=== PATIENT | male | born 1965 | race Hispanic/Latino ===

== ENCOUNTER 2018-05-20 10:15 | Emergency (ER) | payer BC ==
--- NOTE | 2018-05-20 10:46 | C.PDOC ---
History Of Present Illness 53 y/o male presents to the ED with 3 day history of back pain. Patient denies any recent trauma or heavy lifting. Pain is described as constant, with no change with movement. Otherwise patient denies any weakness, numbness, tingling , dysuria, or hematuria. Patient states he did fall 6 weeks ago and was evaluated with negative x-rays of his chest at that time. Time Seen by Provider: 05/20/18 10:21 Chief Complaint (Nursing): Back Pain History Per: Patient History/Exam Limitations: no limitations Onset/Duration Of Symptoms: Days (x3) Current Symptoms Are (Timing): Still Present Past Medical History Reviewed: Historical Data, Nursing Documentation, Vital Signs Vital Signs: Last Vital Signs Temp 99.0 F 05/20/18 11:43 Pulse 79 05/20/18 11:43 Resp 16 05/20/18 11:43 BP 113/66 05/20/18 11:43 Pulse Ox 95 05/20/18 11:43 - Medical History PMH: No Chronic Diseases Surgical History: No Surg Hx Family History: States: No Known Family Hx - Social History Hx Tobacco Use: Yes Hx Alcohol Use: No Hx Substance Use: No - Immunization History Hx Tetanus Toxoid Vaccination: No Hx Influenza Vaccination: No Hx Pneumococcal Vaccination: No Review Of Systems Except As Marked, All Systems Reviewed And Found Negative. Constitutional: Negative for: Fever, Chills Gastrointestinal: Negative for: Abdominal Pain Genitourinary: Negative for: Dysuria, Frequency, Hematuria Musculoskeletal: Positive for: Back Pain Neurological: Negative for: Weakness, Numbness, Other (tingling) Physical Exam - Physical Exam Appears: Well, Non-toxic, No Acute Distress Skin: Warm, Dry, Rash (Rash over the lumbar area, consistent with application of hot packs) Head: Atraumatic, Normacephalic Eye(s): bilateral: Normal Inspection, PERRL, EOMI Neck: Normal ROM Cardiovascular: Rhythm Regular Respiratory: Normal Breath Sounds Gastrointestinal/Abdominal: Soft, No Tenderness, No Distention Back: Vertebral Tenderness (lumbar), Paraspinal Tenderness (lumbar) Extremity: Normal ROM Neurological/Psych: Oriented x3, Normal Speech, Normal Cranial Nerves, Normal Motor, Normal Sensation Gait: Steady (ambulating in fast track with steady gait) ED Course And Treatment O2 Sat by Pulse Oximetry: 97 (RA) Pulse Ox Interpretation: Normal - Other Rad x-ray lumbar spine X-Ray: Viewed By Me, Read By Radiologist Interpretation: Accession No. : [id number]. Patient Name / ID : BOB TANNER / [id number]. Exam Date : 05/20/2018 10:39:16 ( Approved ). Study Comment : Sex / Age : M / 53Y. Creator : Julien Cross MD. Dictator : Julien Cross MD. Phonograph Needle Tip Maker : Conventions Assistant : Julien Cross MD. Approver2 : Report Date : 05/20/2018 11:27:17. My Comment : . Date of service: 05/20/2018. PROCEDURE: Radiographs of the Lumbar Spine. HISTORY: midline back pain. COMPARISON: No prior. FINDINGS: BONES: Vertebral body heights are maintained. Grade 1 anterolisthesis of L5 on S1. Normal lumbar lordosis maintained. Chronic bilateral pars defects of L5. DISC SPACES: Severe disc space narrowing at L5-S1. OTHER FINDINGS: None. IMPRESSION: Chronic pars defects of L5. Grade 1 anterolisthesis of L5 on S1 with severe disc space narrowing at this level. Progress Note: X-ray of the lumbar spine ordered and reviewed. Patient treated with 30 mg IM Toradol and 5 mg PO Valium in the ED. Counseled patient regarding x-ray results, copy of report provided. On reevaluation patient is resting comfortably and reports complete relief of pain. Patient remains AAOx3, afebrile , with steady gait, and is stable for d/c home. Reevaluation Time: 11:38 Reassessment Condition: Improved Disposition - Disposition Disposition: HOME/ ROUTINE Disposition Time: 11:49 Condition: GOOD Additional Instructions: Follow-up with PMD within 2 days. Return to ED if condition worsens. Flexeril for pain. Prescriptions: Cyclobenzaprine [Cyclobenzaprine HCl] 10 mg PO TID PRN #20 tab PRN Reason: Pain, Moderate (4-7) Instructions: Spondylolisthesis, Low Back Pain (DC) Forms: [employer] (Omani) - Clinical Impression Clinical Impression: Low back pain, Anterolisthesis, Disc narrowing - Scribe Statement The provider has reviewed the documentation as recorded by the Scribe (Tricia Gandara) Provider Attestation: All medical record entries made by the Scribe were at my direction and personally dictated by me. I have reviewed the chart and agree that the record accurately reflects my personal performance of the history, physical exam, medical decision making, and the department course for this patient. I have also personally directed, reviewed, and agree with the discharge instructions and disposition.
--- NOTE | 2018-05-20 11:28 | RAD ---
Date of service: 05/20/2018 PROCEDURE: Radiographs of the Lumbar Spine. HISTORY: midline back pain COMPARISON: No prior. FINDINGS: BONES: Vertebral body heights are maintained. Grade 1 anterolisthesis of L5 on S1. Normal lumbar lordosis maintained. Chronic bilateral pars defects of L5. DISC SPACES: Severe disc space narrowing at L5-S1. OTHER FINDINGS: None. IMPRESSION: Chronic pars defects of L5. Grade 1 anterolisthesis of L5 on S1 with severe disc space narrowing at this level.
[2018-05-20 11:45] VITALS: BP 113/66; PULSE 79; RESP 16; TEMP 99
[2018-05-20 11:51] VITALS: O2SAT 97
== END 2018-05-20 11:57 | disposition home or self-care (01) ==
LOC: C.ER 10:15
DX: M48.07 Spinal stenosis, lumbosacral region (principal); M54.5 Low back pain
CPT/HCPCS: 72100; 96372; 99284; J1885

== ENCOUNTER 2018-05-22 17:26 | Emergency (ER) | payer BC ==
[2018-05-22 17:40] VITALS: BMI 25.7
[2018-05-22 17:43] VITALS: BP 111/76; PULSE 96; RESP 18; TEMP 98.2; O2SAT 95
--- NOTE | 2018-05-22 18:03 | C.PDOC ---
History Of Present Illness 53 y/o male presents to the ER complaining of persistent lower back pain that has not improved since his prior ER visit on 05/20/18. The patient admits to experiencing a fall from a ladder 9 weeks ago that did not result in an acute injury. He denies any associated paresthesia , numbness, dysuria or incontinence. Time Seen by Provider: 05/22/18 17:47 Chief Complaint (Nursing): Back Pain History Per: Patient History/Exam Limitations: no limitations Onset/Duration Of Symptoms: Days Current Symptoms Are (Timing): Still Present Quality Of Discomfort: "Pain" Associated Symptoms: denies: Incontinence, New Weakness, New Numbness Past Medical History Reviewed: Historical Data, Nursing Documentation, Vital Signs Vital Signs: Last Vital Signs Temp 98.2 F 05/22/18 17:40 Pulse 96 H 05/22/18 17:40 Resp 18 05/22/18 18:19 BP 111/76 05/22/18 17:40 Pulse Ox 95 05/22/18 18:41 - Medical History PMH: No Chronic Diseases Other Surgeries: Left arm surgery Family History: States: Unknown Family Hx - Social History Hx Tobacco Use: Yes Hx Alcohol Use: No Hx Substance Use: No - Immunization History Hx Tetanus Toxoid Vaccination: No Hx Influenza Vaccination: No Hx Pneumococcal Vaccination: No Review Of Systems Except As Marked, All Systems Reviewed And Found Negative. Constitutional: Negative for: Fever Genitourinary: Negative for: Dysuria, Incontinence Musculoskeletal: Positive for: Back Pain Skin: Negative for: Bruising Neurological: Negative for: Weakness, Numbness, Other (paresthesia) Physical Exam - Physical Exam Appears: Well, Non-toxic, No Acute Distress Skin: Warm, Dry Head: Atraumatic, Normacephalic Eye(s): bilateral: PERRL, EOMI Ear(s): Bilateral: Normal Oral Mucosa: Moist Neck: Normal ROM Chest: Symmetrical Cardiovascular: Rhythm Regular, No Murmur Respiratory: Normal Breath Sounds, No Rales, No Rhonchi, No Wheezing Gastrointestinal/Abdominal: Bowel Sounds, Soft, No Tenderness Back: Other (Point tenderness at L5 with digital pressure) Extremity: Bilateral: Atraumatic, Normal Color And Temperature, Normal ROM Pulses: Left Radial: Normal, Right Radial: Normal Neurological/Psych: Oriented x3, Normal Speech Gait: Steady ED Course And Treatment O2 Sat by Pulse Oximetry: 95 (RA) Pulse Ox Interpretation: Normal Medical Decision Making Medical Decision Making: Impression: 53y/o male with persistent lower back pain Plan: --Motrin 600mg PO --Ultram 50 mg PO ? related to fall from ladder 9 wks ago L5/S1 anterior spondylolysthesis noted from 2 days ago on LS spine films no neuropathy probably worse with heating pads ice/NSAIDS/Tramadol outpatient f/u for CT/MRI w PMD/ Medicine [facility] Administrator today is Dr. Yousif Cross Disposition Doctor Will See Patient In The: Office Counseled Patient/Family Regarding: Studies Performed, Diagnosis - Disposition Referrals: [facility] [Outside] [employer] [facility] [Outside] [facility] [Outside] Mike Cross MD [Staff Provider] - Disposition: HOME/ ROUTINE Disposition Time: 18:03 Condition: GOOD Additional Instructions: ice packs to affected area 1/2 hour per hour NOTHING HOT Motrin 400-600 mg every 6 hours as needed for pain Tramadol 50 mg (narcotic) 1 tab every 4-6 hours as needed for more severe pain Follow-up with Dr. Yousif Cross- Medicine [facility] Administrator- to consider outpatient CT or MRI of LS spine if symptoms not improving with above treatment in 1-2 weeks Prescriptions: traMADol [Ultram] 50 mg PO Q6H PRN #20 tab PRN Reason: pain Instructions: Low Back Pain in Adults, Herniated Disc Forms: [employer] (Czech) - Clinical Impression Clinical Impression: Low back pain - Scribe Statement The provider has reviewed the documentation as recorded by the Scribe (Beatriz Mccoy) Provider Attestation: All medical record entries made by the Scribe were at my direction and personally dictated by me. I have reviewed the chart and agree that the record accurately reflects my personal performance of the history, physical exam, medical decision making, and the department course for this patient. I have also personally directed, reviewed, and agree with the discharge instructions and disposition.
== END 2018-05-22 18:20 | disposition home or self-care (01) ==
LOC: C.ER 17:26
DX: M54.5 Low back pain (principal)

== ENCOUNTER 2018-05-25 07:43 | Inpatient (IN) | payer BC ==
[2018-05-25 07:43] VITALS: BMI 25.7
--- NOTE | 2018-05-25 08:10 | C.PDOC ---
History Of Present Illness 53 y/o male present to ED for evaluation of left sided weakness and numbness upon waking up this morning. He states he was unable to move his left side which has improved since onset at 630 am upon awakening. Also reports left side of lip drooping. He also notes he fell off a ladder approximately 6 weeks ago and was evaluated with negative x-rays. Denies headache, dizziness, visual changes, chest pain, shortness of breath, or fever. Denies history of HTN. Time Seen by Provider: 05/25/18 07:47 Chief Complaint (Nursing): Weakness/Neurological Deficit History Per: Patient History/Exam Limitations: no limitations Past Medical History Reviewed: Historical Data, Nursing Documentation, Vital Signs Vital Signs: Last Vital Signs Temp 98.1 F 05/26/18 04:35 Pulse 81 05/26/18 04:35 Resp 20 05/26/18 04:35 BP 120/76 05/26/18 04:35 Pulse Ox 99 05/26/18 04:35 Family History: States: Unknown Family Hx - Social History Hx Tobacco Use: Yes Hx Alcohol Use: No Hx Substance Use: No - Immunization History Hx Tetanus Toxoid Vaccination: No Hx Influenza Vaccination: No Hx Pneumococcal Vaccination: No Review Of Systems Except As Marked, All Systems Reviewed And Found Negative. Constitutional: Negative for: Fever, Chills Cardiovascular: Negative for: Chest Pain Respiratory: Negative for: Shortness of Breath Neurological: Positive for: Weakness, Numbness. Negative for: Headache, Dizziness Physical Exam - Physical Exam Appears: Non-toxic, No Acute Distress Skin: Normal Color, Warm, Dry Head: Normacephalic, Other (mild left facial droop) Eye(s): bilateral: Normal Inspection Oral Mucosa: Moist Neck: Normal ROM, Supple Chest: Symmetrical Cardiovascular: Rhythm Regular Respiratory: Normal Breath Sounds, No Rales, No Rhonchi, No Wheezing Gastrointestinal/Abdominal: Soft, No Tenderness Extremity: No Pedal Edema, No Deformity Extremity: Bilateral: Atraumatic Neurological/Psych: Oriented x3, Normal Speech, Normal Motor, No Normal Sensation (diminished sensation to left extremities) ED Course And Treatment - Laboratory Results Result Diagrams: 05/25/18 08:16 05/25/18 08:16 ECG: Interpreted By Me, Viewed By Me ECG Rhythm: Sinus Rhythm ECG Interpretation: No Acute Changes Interpretation Of ECG: Normal intervals, normal axis. No acute ST/T wave changes. Rate From EC O2 Sat by Pulse Oximetry: 95 (RA) Pulse Ox Interpretation: Normal - CT Scan/US Head CT Other Rad Studies (CT/US): Read By Radiologist, Radiology Report Reviewed CT/US Interpretation: IMPRESSION: No definite acute intracranial findings though mild atrophy is somewhat greater than expected for patient of 53 years age as reported. This is a nonspecific pattern. A small chronic lacune is seen at the left basal ganglia inferiorly. Findings discussed with ER Nurse Estela with written down and read back verification 05/25/2018 8:40 a.m.. NIHSS Stroke Scale 2 - Date/Time Evaluation Performed Date Performed: 05/25/18 Time Performed: 08:09 When Was NIHSS Performed: Baseline - How Severe is the Stroke Level of Consciousness: 0=Alert LOC to Questions: 0=Both comments correct LOC to commands: 0=Obeys both correctly Best Gaze: 0=Normal Visual: 0=No visual loss Facial: 1=Minor asymmetry Motor Arm - Left: 1=Drift noted before 10 sec Motor Arm - Right: 0=No drift Motor Leg - Left: 1=Drift before 5 sec Motor Leg - Right: 0=No drift Limb Ataxia: 0=Absent Sensory: 1=Mild to moderate loss Best Language: 0=No aphasia Dysarthia: 0=Normal articulation Extinction & Inattention (Neglect): 0=Normal, no object Score: 4 Medical Decision Making Medical Decision Making: Plan: CTA head/neck EKG CXR Blood work IV fuids Spoke with Dr. Thornton, who states patient is not candidate for tPA since he woke up with symptoms and was instructed to start patient on Plavix and Aspirin. Disposition Discussed With : Paramjit Pride Doctor Will See Patient In The: Hospital Counseled Patient/Family Regarding: Studies Performed, Diagnosis - Disposition Disposition: HOSPITALIZED Disposition Time: 09:14 Condition: FAIR - Clinical Impression Clinical Impression: CVA (cerebral vascular accident), Pneumonia - Scribe Statement The provider has reviewed the documentation as recorded by the Scribe KP All medical record entries made by the Scribe were at my direction and personally dictated by me. I have reviewed the chart and agree that the record accurately reflects my personal performance of the history, physical exam, medical decision making, and the department course for this patient. I have also personally directed, reviewed, and agree with the discharge instructions and disposition.
[2018-05-25] MEDS ORDERED: Iodixanol 320 MG/ML 200 ML BOTTLE IV ONE (08:14)
[2018-05-25 08:23] LABS: BASO # 0.1 K/uL (0.0-0.2); BASO % 0.6 % (0.0-2.0); EOS # 0.3 K/uL (0.0-0.7); EOS % 3.2 % (0.0-4.0); HEMOGLOBIN 15.5 g/dL (12.0-18.0); LYMPH # 2.4 K/uL (1.0-4.3); LYMPH % 28.8 % (20.0-40.0); MEAN CELL VOLUME 88.2 fL (80.0-94.0); MEAN CORPUSCULAR HEMOGLOBIN 30.9 pg (27.0-31.0); MEAN PLATELET VOLUME 6.4 fL (7.2-11.7); MONO # 0.8 K/uL (0.0-0.8); MONO % 9.7 % (0.0-10.0); NEUT # 4.8 K/uL (1.8-7.0); NEUT % 57.7 % (50.0-75.0); NRBC % 0.2 % (0.0-2.0); RBC 5.01 Mil/uL (4.40-5.90); RED CELL DISTRIBUTION WIDTH 13.7 % (11.5-14.5); WHITE BLOOD COUNT 8.4 K/uL (4.8-10.8)
[2018-05-25 08:30] LABS: INR 1.2; PROTHROMBIN TIME 13.1 SECONDS (9.7-12.2)
--- NOTE | 2018-05-25 08:45 | CT ---
Date of service: 05/25/2018 PROCEDURE: CT HEAD WITHOUT CONTRAST. HISTORY: Code Stroke COMPARISON: None available. TECHNIQUE: Axial computed tomography images were obtained through the head/brain without intravenous contrast. Radiation dose: Total exam DLP = 972.04 mGy-cm. This CT exam was performed using one or more of the following dose reduction techniques: Automated exposure control, adjustment of the mA and/or kV according to patient size, and/or use of iterative reconstruction technique. FINDINGS: HEMORRHAGE: No intracranial hemorrhage. BRAIN: Mild expansion of the ventricular sulcal sternal spaces is appreciated slightly greater than expected for the patient's age of 53 years. A small chronic lacune is seen the left basal ganglia inferiorly. Corticomedullary differentiation is normal throughout. A small arachnoid cyst or epidermoid is seen at the left middle cranial fossa anteriorly measuring 3.0 x 1.8 cm. Posterior fossa contents appear unremarkable including the brainstem. VENTRICLES: As above. No hydrocephalus. CALVARIUM: Unremarkable. PARANASAL SINUSES: Unremarkable as visualized. No significant inflammatory changes. MASTOID AIR CELLS: Unremarkable as visualized. No inflammatory changes. OTHER FINDINGS: None. IMPRESSION: No definite acute intracranial findings though mild atrophy is somewhat greater than expected for patient of 53 years age as reported. This is a nonspecific pattern. A small chronic lacune is seen at the left basal ganglia inferiorly. Findings discussed with ER Nurse Palmer with written down and read back verification 05/25/2018 8:40 a.m..
[2018-05-25 08:46] LABS: ALB/GLOB RATIO 1.3 (1.0-2.1); ALT/SGPT 18 U/L (21-72); AST/SGOT 20 U/L (17-59); BLOOD UREA NITROGEN 11 mg/dL (9-20); CALCIUM 9.7 mg/dl (8.6-10.4); GFR AFRICAN-AMERICAN > 60; GFR NON-AFRICAN AMERICAN > 60; HDL CHOLESTEROL 36 mg/dL (30-70)
[2018-05-25] MEDS ORDERED: Aspirin 325 mg EC Tablets PO STA (08:50)
[2018-05-25 08:57] LABS: LDL CHOLESTEROL 105 mg/dL (0-129)
[2018-05-25] MEDS: Sodium Chloride 0.9% 1,000 ML IV SCH ×2 (09:04→20:31)
[2018-05-25] MEDS ORDERED: Azithromycin 500 MG in Sodium Chloride 0.9% 250 ML IVPB STA (09:13)
[2018-05-25] MEDS ORDERED: cefTRIAXone IV 1 gm in Dextros 50 ML IVPB ONE (09:20)
--- NOTE | 2018-05-25 09:56 | RAD ---
Date of service: 05/25/2018 HISTORY: Code Stroke COMPARISON: No prior. FINDINGS: LUNGS: Reticulonodular infiltrates are scattered bilaterally in the right greater than the left with the right apex somewhat spared. PLEURA: No significant pleural effusion identified, no pneumothorax apparent. CARDIOVASCULAR: Normal. OSSEOUS STRUCTURES: No significant abnormalities. VISUALIZED UPPER ABDOMEN: Normal. OTHER FINDINGS: None. IMPRESSION: Reticulonodular infiltrates are identified bilaterally in a pattern suspicious for infectious, inflammatory or neoplastic disease process. Further clinical correlation recommended.
--- NOTE | 2018-05-25 10:11 | CT ---
Date of service: 05/25/2018 PROCEDURE: CT Angiography of the Brain and Neck. HISTORY: stroke COMPARISON: None available. TECHNIQUE: CT angiography of the intracranial and neck arteries was performed. Coronal and sagittal maximum intensity projection reformatted images were generated. Contrast Dose: Visipaque 320, 100 cc Radiation dose:Total exam DLP = 60.03 mGy-cm. This CT exam was performed using one or more of the following dose reduction techniques: Automated exposure control, adjustment of the mA and/or kV according to patient size, and/or use of iterative reconstruction technique. FINDINGS: INTERNAL CEREBRAL ARTERIES: Unremarkable. The skull base, petrous, cavernous and supraclinoid segments are bilaterally widely patent. ANTERIOR CEREBRAL ARTERIES: Unremarkable. A1 and A2 segments are widely patent. Smaller distal branches unremarkable, as visualized. MIDDLE CEREBRAL ARTERIES: Unremarkable. M1 and M2 segments are widely patent. Perisylvian branches grossly symmetric. POSTERIOR CIRCULATION: Basilar Artery: Unremarkable. Distal Vertebral Arteries: Right dominant vertebrobasilar circulation. Posterior Cerebral Arteries: Unremarkable. Posterior Inferior Cerebellar Arteries: Unremarkable. NECK CTA: Common Carotid arteries: The bilateral common carotid appear widely patent from their origins to their bifurcations with no significant stenosis appreciated. No evidence to suggest common carotid artery dissection. Internal Carotid arteries: No significant stenosis is appreciated throughout the cervical internal carotid artery segments bilaterally and there is no evidence of dissection either. External Carotid arteries: Appear unremarkable bilaterally. Vertebral arteries: The bilateral vertebral arteries appear normal in caliber from their origins to their junction with the basilar artery. No significant stenosis or definite pattern of dissection. ANEURYSM/ VASCULAR MALFORMATIONS: None. OTHER FINDINGS: Instill note is made of mediastinal lymphadenopathy, moderately large left pleural effusion and bilateral reticulonodular infiltrates at the pulmonary apices as imaged. IMPRESSION: Unremarkable CT Angiography of the Brain and Neck. Incidental mediastinal lymphadenopathy, large left pleural effusion and bilateral apical reticulonodular infiltrates identified.
--- NOTE | 2018-05-25 12:22 | CP.PCM.HP ---
<Hanna MorenoRandee - Last Filed: 05/25/18 16:56> History of Present Illness - History of Present Illness History of Present Illness: CC: left side weakness Patient is a 53 year old male with no significant past medical history who presented to the ED because he woke up this morning and was not able to move his left arm or leg. He immediately called his son who noticed his speech sounded slurred. An ambulance was called to take the patient to the ED. Patient says he is unsure if he had decreased sensation on the left side at that time but currently does not. Patient says his son also noticed some left lip drooping. Patient says the inability to move his left side lasted for about 1 hour and he has gradually been obtaining more strength. Currently patient feels weaker on the left side, but is able to move the left side. Patient says nothing like this has ever happened before. Patient denies any headache, dizziness, blurred vision, chest pain, abdominal pain, nausea, vomiting, constipation, or diarrhea. Patient denies weight loss, but as per family they think he has lost a lot of weight recently. Of note, in the past few weeks patient has been having some shortness of breath. Patient went to a form raiser, Dr. Ortega, who prescribed him Levofloxacin because his throat look inflamed. Patient was also given a steroid taper and an inhaler. Additionally patient had a fall about 6 weeks ago. No fractures were ever found. Patient came into the ED on 05/20 for low back pain twice. Lumbar xray was done which showed chronic pars defect of L5. Patient was sent home with cyclobenzaprine. Patient returned on 05/22 and given Ultram 50mg po q6h prn. Patient only took this medication once or twice as he did not like how it made him feel. PMD: none Allergies: NKDA PMHx: left groin hernia Psur- left arm infection and surgery Famhx: brother- from stomach CA at age 29 Father: emphysema Social: 1.5 pack ppd x 30+ years, drinks 4 drinks about once per month, denies drugs, lives alone, works construction Present on Admission - Present on Admission Any Indicators Present on Admission: No History of DVT/PE: No History of Uncontrolled Diabetes: No Urinary Catheter: No Decubitus Ulcer Present: No Review of Systems - Constitutional Constitutional: absent: Chills, Fever - EENT Eyes: absent: Blurred Vision Nose/Mouth/Throat: absent: Sore Throat - Cardiovascular Cardiovascular: absent: Chest Pain, Dyspnea, Leg Edema, Palpitations - Respiratory Respiratory: Dyspnea. absent: Cough - Gastrointestinal Gastrointestinal: absent: Abdominal Pain, Constipation, Diarrhea, Nausea, Vomiting - Genitourinary Genitourinary: absent: Change in Urinary Stream, Difficulty Urinating, Dysuria, Hematuria - Musculoskeletal Musculoskeletal: Muscle Weakness (left sided ) - Integumentary Integumentary: absent: Rash - Neurological Neurological: Focal Weakness (left sided ), Weakness (left side ). absent: Syncope Past Patient History - Past Social History Smoking Status: Heavy Smoker > 10 Cigarettes Daily - PSYCHIATRIC Hx Substance Use: No - SURGICAL HISTORY Hx Surgeries: Yes Other/Comment: left arm surgery - ANESTHESIA Hx Anesthesia: Yes Hx Anesthesia Reactions: No Meds Allergies/Adverse Reactions: Allergies Allergy/AdvReac Type Severity Reaction Status Date / Time No Known Allergies Allergy Verified 05/22/18 17:39 Physical Exam - Constitutional Appears: Non-toxic, No Acute Distress - Head Exam Head Exam: ATRAUMATIC, NORMAL INSPECTION, NORMOCEPHALIC - Eye Exam Eye Exam: EOMI, Normal appearance - ENT Exam ENT Exam: Mucous Membranes Moist Additional comments: tongue with thrush throat erythematous - Respiratory Exam Respiratory Exam: Clear to Auscultation Bilateral, NORMAL BREATHING PATTERN - Cardiovascular Exam Cardiovascular Exam: REGULAR RHYTHM, RRR, +S1, +S2 - GI/Abdominal Exam GI & Abdominal Exam: Normal Bowel Sounds, Soft. absent: Tenderness - Extremities Exam Extremities exam: Positive for: normal inspection. Negative for: tenderness - Neurological Exam Neurological exam: Alert, Oriented x3 - Expanded Neurological Exam Expanded Patient oriented to: person, place, time Cranial nerves: EOM's Intact: Abnormal Left (difficulty puffing out cheek on left), Facial Palsey w/Forehead Movement: Normal, Facial Palsey w/o Forehead Movement: Normal, Facial Sensation: Normal, Gag Reflex: Normal, Nystagmus: Normal, Tongue Deviation: Normal Cerebellar Function: Finger to Nose: Abnormal Left Upper motor neuron: Babinski Sign: Normal, Eduardo Neglect: Normal, Pronator Drift : Abnormal Left Sensory exam: Lower Extremity Light Touch: Normal, Upper Extremity Light Touch: Normal Neuro motor strength exam: Left Upper Extremity: 4, Right Upper Extremity: 5, Left Lower Extremity: 4, Right Lower Extremity: 5 Coma Scale Eye Opening: SPONTANEOUS Coma Scale Motor Response: OBEYS COMMANDS Coma Scale Verbal: Oriented Coma Scale Total: 15 - Psychiatric Exam Psychiatric exam: Normal Affect, Normal Mood - Skin Skin Exam: Intact, Normal Color, Warm Additional comments: scabs on feet from bug bites Results - Vital Signs Recent Vital Signs: Last Vital Signs Temp 98.2 F 05/25/18 10:53 Pulse 93 H 05/25/18 10:53 Resp 20 05/25/18 10:53 BP 137/91 H 05/25/18 10:53 Pulse Ox 96 05/25/18 10:53 - Labs Result Diagrams: 05/25/18 08:16 05/25/18 08:16 Labs: Laboratory Results - last 24 hr 05/25/18 05/25/18 05/25/18 08:16 08:16 08:16 WBC 8.4 RBC 5.01 Hgb 15.5 Hct 44.1 MCV 88.2 MCH 30.9 MCHC 35.0 RDW 13.7 Plt Count 484 H MPV 6.4 L Neut % (Auto) 57.7 Lymph % (Auto) 28.8 [place] % (Auto) 9.7 Eos % (Auto) 3.2 Baso % (Auto) 0.6 Neut # (Auto) 4.8 Lymph # (Auto) 2.4 [place] # (Auto) 0.8 Eos # (Auto) 0.3 Baso # (Auto) 0.1 PT 13.1 H INR 1.2 APTT 29 Sodium 141 Potassium 3.8 Chloride 103 Carbon Dioxide 27 Anion Gap 14 BUN 11 Creatinine 0.7 L Est GFR ( Amer) > 60 Est GFR (Non-Af Amer) > 60 Random Glucose 110 Hemoglobin A1c Calcium 9.7 Total Bilirubin 0.7 AST 20 ALT 18 L Alkaline Phosphatase 146 H Troponin I < 0.0120 Total Protein 7.1 Albumin 4.0 Globulin 3.1 Albumin/Globulin Ratio 1.3 Triglycerides 131 Cholesterol 184 LDL Cholesterol Direct 105 HDL Cholesterol 36 Blood Type Antibody Screen 05/25/18 05/25/18 08:16 08:16 WBC RBC Hgb Hct MCV MCH MCHC RDW Plt Count MPV Neut % (Auto) Lymph % (Auto) [place] % (Auto) Eos % (Auto) Baso % (Auto) Neut # (Auto) Lymph # (Auto) [place] # (Auto) Eos # (Auto) Baso # (Auto) PT INR APTT Sodium Potassium Chloride Carbon Dioxide Anion Gap BUN Creatinine Est GFR ( Amer) Est GFR (Non-Af Amer) Random Glucose Hemoglobin A1c 6.4 Calcium Total Bilirubin AST ALT Alkaline Phosphatase Troponin I Total Protein Albumin Globulin Albumin/Globulin Ratio Triglycerides Cholesterol LDL Cholesterol Direct HDL Cholesterol Blood Type O NEGATIVE Antibody Screen Negative Assessment & Plan - Assessment and Plan (Free Text) Assessment: CVA vs TIA Code stroke called Dr. Thornton consulted, no TPA (out of window since patient woke up with symptoms) Head CT (05/25): no definite acute intracranial findings though mild atrophy is somewhat greater than expected for patient of 53 years age. small chronic lacune is seen at the left basal ganglia inferiorly. Head/Neck CTA: incidental mediastinal lymphadenopathy, large left pleural effusion and bilateral apical reticulonodular infiltrates identified. f/u echo f/u vit b12, vit D f/u BNP f/u free T4, TSH f/u MRI brain Meds: * ASA 325mg po given * Plavix 300mg given * ASA 81mg po daily * Crestor 20mg po HS; Lipid panel : Triglycerides 131, Cholesterol 184, LDL 105 , HDL 36 Pulmonary Infiltrates Cxray: reticulonodular infiltrates are identified bilaterally in a pattern suspicious for infectious, inflammatory or neoplastic disease process. Ceftriaxone and Rocephin given in ED f/u legionella, strep pneumo, mycoplasma, ASO f/u sputum culture, blood culture f/u CT chest, abd, pelvis Meds: * Azithromycin 500mg ivpb daily * Rocephin 1 gm q12h IGT HgA1c: 6.4 diabetic diet Oral Thrush f/u HIV Nystatin 5ml po QID Prophylaxis DVTs Pepcid 20mg po daily Discussed with Dr. Pride <Paramjit Pride H - Last Filed: 05/25/18 18:30> Results - Vital Signs Recent Vital Signs: Last Vital Signs Temp 98.1 F 05/25/18 15:31 Pulse 93 H 05/25/18 16:39 Resp 20 05/25/18 15:31 BP 127/78 05/25/18 15:31 Pulse Ox 93 L 05/25/18 15:31 - Labs Result Diagrams: 05/25/18 08:16 08/05/18 08:16 Labs: Laboratory Results - last 24 hr 05/25/18 05/25/18 05/25/18 08:16 08:16 08:16 WBC 8.4 RBC 5.01 Hgb 15.5 Hct 44.1 MCV 88.2 MCH 30.9 MCHC 35.0 RDW 13.7 Plt Count 484 H MPV 6.4 L Neut % (Auto) 57.7 Lymph % (Auto) 28.8 [place] % (Auto) 9.7 Eos % (Auto) 3.2 Baso % (Auto) 0.6 Neut # (Auto) 4.8 Lymph # (Auto) 2.4 [place] # (Auto) 0.8 Eos # (Auto) 0.3 Baso # (Auto) 0.1 PT 13.1 H INR 1.2 APTT 29 Sodium 141 Potassium 3.8 Chloride 103 Carbon Dioxide 27 Anion Gap 14 BUN 11 Creatinine 0.7 L Est GFR ( Amer) > 60 Est GFR (Non-Af Amer) > 60 Random Glucose 110 Hemoglobin A1c Calcium 9.7 Total Bilirubin 0.7 AST 20 ALT 18 L Alkaline Phosphatase 146 H Troponin I < 0.0120 NT-Pro-B Natriuret Pep Total Protein 7.1 Albumin 4.0 Globulin 3.1 Albumin/Globulin Ratio 1.3 Triglycerides 131 Cholesterol 184 LDL Cholesterol Direct 105 HDL Cholesterol 36 Free T4 TSH 3rd Generation Blood Type Antibody Screen 05/25/18 05/25/18 05/25/18 08:16 08:16 13:38 WBC RBC Hgb Hct MCV MCH MCHC RDW Plt Count MPV Neut % (Auto) Lymph % (Auto) [place] % (Auto) Eos % (Auto) Baso % (Auto) Neut # (Auto) Lymph # (Auto) [place] # (Auto) Eos # (Auto) Baso # (Auto) PT INR APTT Sodium Potassium Chloride Carbon Dioxide Anion Gap BUN Creatinine Est GFR ( Amer) Est GFR (Non-Af Amer) Random Glucose Hemoglobin A1c 6.4 Calcium Total Bilirubin AST ALT Alkaline Phosphatase Troponin I NT-Pro-B Natriuret Pep Total Protein Albumin Globulin Albumin/Globulin Ratio Triglycerides Cholesterol LDL Cholesterol Direct HDL Cholesterol Free T4 1.52 TSH 3rd Generation Blood Type O NEGATIVE Antibody Screen Negative 05/25/18 16:43 WBC RBC Hgb Hct MCV MCH MCHC RDW Plt Count MPV Neut % (Auto) Lymph % (Auto) [place] % (Auto) Eos % (Auto) Baso % (Auto) Neut # (Auto) Lymph # (Auto) [place] # (Auto) Eos # (Auto) Baso # (Auto) PT INR APTT Sodium Potassium Chloride Carbon Dioxide Anion Gap BUN Creatinine Est GFR ( Amer) Est GFR (Non-Af Amer) Random Glucose Hemoglobin A1c Calcium Total Bilirubin AST ALT Alkaline Phosphatase Troponin I NT-Pro-B Natriuret Pep 26.8 Total Protein Albumin Globulin Albumin/Globulin Ratio Triglycerides Cholesterol LDL Cholesterol Direct HDL Cholesterol Free T4 TSH 3rd Generation 0.49 Blood Type Antibody Screen Attending/Attestation - Attestation I have personally seen and examined this patient.: Yes I have fully participated in the care of the patient.: Yes I have reviewed all pertinent clinical information: Yes Notes (Text): 05/25/18 18:26 Medical attending: Patient was seen and examined by me. By the time I saw the patient he was already on 6T. Family present. Patient was not in any acute distress when I saw him. Following all commands. He did not seem to have noticeable weakness on the left upper or left lower extremity when I saw him. He also reported the numbess and parathesia had resolved. Nevertheless he was placed on ASA and Plavix. Also pending MRI/MRA of the head and neck as well. Very concerning also was the pleural effusion seen on the CT with IV contrast of the head and neck. We ordered a follow up CT of the chest as well - it is pending an official read however I did review it myself and there appears besides the pleural effusion also these small spiculated areas along the chest cavity. We will have to see the final report. He is a heavy smoker and while he denied weight loss - the family feel that he has had weightloss for some time now. Because of these findings he may very well need IR and pulmonology evaluation as well For the time being we also checked blood, atypical, and sputum cultures and are covering with IV rocpehin and IV azithromycin Paramjit Pride
--- NOTE | 2018-05-25 14:04 | CP.PCM.CON ---
History of Present Illness - History of Present Illness History of Present Illness: Neurology Consultation Note: Mr. Marquez is a 53-year-old man no significant past medical history who fell off of a ladder about 2 weeks ago and had injury to the right side of his chest , and presented to the ED because he woke up this morning and was not able to move his left arm or leg. He immediately called his son who noticed his speech sounded slurred. He was brought in by EMS, and his symptoms were resolving. CT scan of the head did not show any acute findings. CTA of the head/neck did not show large vessel occlusion/stenosis, but he did have mediastinal lymphadenopathy and pleural effusion. He was not a candidate for IV tPA due to being outside the 4.5 hour time window (woke up with symptoms). Review of Systems - Review of Systems All systems: reviewed and no additional remarkable complaints except Past Patient History - Past Medical History & Family History Past Medical History?: Yes - Past Social History Smoking Status: Heavy Smoker > 10 Cigarettes Daily - CARDIAC Hx Cardiac Disorders: No - PULMONARY Hx Respiratory Disorders: No - NEUROLOGICAL Hx Neurological Disorder: No - HEENT Hx HEENT Problems: No - RENAL Hx Chronic Kidney Disease: No - ENDOCRINE/METABOLIC Hx Endocrine Disorders: No - HEMATOLOGICAL/ONCOLOGICAL Hx Blood Disorders: No - INTEGUMENTARY Hx Dermatological Problems: No - MUSCULOSKELETAL/RHEUMATOLOGICAL Hx Musculoskeletal Disorders: Yes Hx Falls: Yes Hx Unsteady Gait: Yes - GASTROINTESTINAL Hx Gastrointestinal Disorders: No - GENITOURINARY/GYNECOLOGICAL Hx Genitourinary Disorders: No - PSYCHIATRIC Hx Substance Use: No - SURGICAL HISTORY Hx Surgeries: Yes Other/Comment: left arm surgery - ANESTHESIA Hx Anesthesia: Yes Hx Anesthesia Reactions: No Meds Allergies/Adverse Reactions: Allergies Allergy/AdvReac Type Severity Reaction Status Date / Time No Known Allergies Allergy Verified 05/22/18 17:39 - Medications Medications: Current Medications Aspirin (Aspirin Chewable) 81 mg PO DAILY [facility] Sodium Chloride (Sodium Chloride 0.9%) 1,000 mls @ 100 mls/hr IV .Q10H [facility] Last Admin: 05/25/18 09:04 Dose: 100 mls/hr Rosuvastatin Calcium (Crestor) 20 mg PO HS [facility] Physical Exam - Neurological Exam Neurological exam: Alert, CN II-XII Intact, Normal Gait, Oriented x3, Reflexes Normal Additional comments: Slight left upper extremity pronator drift and fine motor deficits. Otherwise , non-focal exam. NIHSS = 1 Results - Vital Signs Recent Vital Signs: Last Vital Signs Temp 98.2 F 05/25/18 10:53 Pulse 93 H 05/25/18 10:53 Resp 20 05/25/18 10:53 BP 137/91 H 05/25/18 10:53 Pulse Ox 96 05/25/18 10:53 - Labs Result Diagrams: 05/25/18 08:16 05/25/18 08:16 Labs: Laboratory Results - last 24 hr 05/25/1818 05/25/18 08:16 08:16 08:16 WBC 8.4 RBC 5.01 Hgb 15.5 Hct 44.1 MCV 88.2 MCH 30.9 MCHC 35.0 RDW 13.7 Plt Count 484 H MPV 6.4 L Neut % (Auto) 57.7 Lymph % (Auto) 28.8 [place] % (Auto) 9.7 Eos % (Auto) 3.2 Baso % (Auto) 0.6 Neut # (Auto) 4.8 Lymph # (Auto) 2.4 [place] # (Auto) 0.8 Eos # (Auto) 0.3 Baso # (Auto) 0.1 PT 13.1 H INR 1.2 APTT 29 Sodium 141 Potassium 3.8 Chloride 103 Carbon Dioxide 27 Anion Gap 14 BUN 11 Creatinine 0.7 L Est GFR ( Amer) > 60 Est GFR (Non-Af Amer) > 60 Random Glucose 110 Hemoglobin A1c Calcium 9.7 Total Bilirubin 0.7 AST 20 ALT 18 L Alkaline Phosphatase 146 H Troponin I < 0.0120 Total Protein 7.1 Albumin 4.0 Globulin 3.1 Albumin/Globulin Ratio 1.3 Triglycerides 131 Cholesterol 184 LDL Cholesterol Direct 105 HDL Cholesterol 36 Blood Type Antibody Screen 05/25/18 05/25/18 08:16 08:16 WBC RBC Hgb Hct MCV MCH MCHC RDW Plt Count MPV Neut % (Auto) Lymph % (Auto) [place] % (Auto) Eos % (Auto) Baso % (Auto) Neut # (Auto) Lymph # (Auto) [place] # (Auto) Eos # (Auto) Baso # (Auto) PT INR APTT Sodium Potassium Chloride Carbon Dioxide Anion Gap BUN Creatinine Est GFR ( Amer) Est GFR (Non-Af Amer) Random Glucose Hemoglobin A1c 6.4 Calcium Total Bilirubin AST ALT Alkaline Phosphatase Troponin I Total Protein Albumin Globulin Albumin/Globulin Ratio Triglycerides Cholesterol LDL Cholesterol Direct HDL Cholesterol Blood Type O NEGATIVE Antibody Screen Negative Assessment & Plan (1) CVA (cerebral vascular accident) Assessment and Plan: May be due to hypercoagulable state, or other cryptogenic causes. I recommend the followin. Telemetry 2. MRI brain without contrast 3. Echocardiogram with bubble study 4. Check HbA1c, lipid, B12, folate, vitamin D levels, homcysteine levels, and hypercoagulable work-up 5. Aspirin 81 mg daily and Plavix 75 mg daily (load Plavix 300 mg now) 6. PT/OT eval and treatment 7. Fluids with NS at 75 mL/hr 8. Permissive HTN (only treat BP that is higher than 220/110 mm Hg) 9. Case management consult 10. Risk factor modification Thank you. Status: Acute Priority: High
[2018-05-25 17:12] LABS: B-TYPE NATRIURETIC PEPTIDE 26.8 pg/mL (0-900)
[2018-05-25] MEDS: Nystatin 100,000 Units/ml Oral Susp 5 ml UD PO SCH ×2 (17:15→21:30)
--- NOTE | 2018-05-25 18:13 | CT ---
Date of service: 05/25/2018 PROCEDURE: CT Chest, Abdomen and Pelvis without intravenous contrast HISTORY: pleural effusion, smoking history COMPARISON: Portable chest 05/25/2018. TECHNIQUE: Helical CT of the thorax was performed without intravenous contrast. Reformatted datasets provided sagittal axial coronal planes. Radiation dose: Total exam DLP = 885.14 mGy-cm. This CT exam was performed using one or more of the following dose reduction techniques: Automated exposure control, adjustment of the mA and/or kV according to patient size, and/or use of iterative reconstruction technique. FINDINGS: CT CHEST WITHOUT CONTRAST: LUNGS: Reticulonodular infiltrates are identified scattered diffusely, bilaterally with the bases more affected than the apices. This is a nonspecific pattern could range from infectious or inflammatory etiologies or even neoplastic. Central airways appear clear. MEDIASTINUM: Mild mediastinal lymphadenopathy is appreciated including 3.4 x 2.1 cm aortic pulmonary window lymph node enlarged subcarinal lymph nodes also identified will find as well as a few other large lymph node. A 3.0 x 2.7 cm right peritracheal lymph node is also identified. No prominent hilar adenopathy. Cardiac size is normal as well as thoracic aortic caliber an main pulmonary artery size. There is a [id number] left pleural effusion identified. No pneumothorax bilaterally. BONES: Unremarkable. OTHER FINDINGS: None. CT ABDOMEN AND PELVIS: LIVER: Unremarkable. No gross lesion or ductal dilatation. GALLBLADDER AND BILE DUCTS: Vicarious excretion of iodinated contrast material is noted. PANCREAS: Unremarkable. No gross lesion or ductal dilatation. SPLEEN: Unremarkable. ADRENALS: Unremarkable. No mass. KIDNEYS AND URETERS: Normal extra function bilateral kidneys. No hydronephrosis. Cyst identified at the left kidney 2.5 cm greatest dimension. VASCULATURE: Unremarkable. No aortic aneurysm. BOWEL: Unremarkable. No obstruction. No gross mural thickening. APPENDIX: Normal appendix. PERITONEUM: Unremarkable. No free fluid. No free air. LYMPH NODES: Retroperitoneal lymphadenopathy appears moderate including a left periaortic lymph node measuring 3.6 x 2.7 cm with similar but less lymphadenopathy along the bilateral iliac distribution. BLADDER: Unremarkable. REPRODUCTIVE: Mildly enlarged prostate gland noted. BONES: Sclerotic foci are scattered at the L4 and L5 vertebral bodies as well as the bilateral sacrum and left innominate bone and right acetabulum. Subcentimeter sclerotic foci are seen at the left femoral head and left ischium with a large ear sclerosis identified at the distal left horizontal pubic ramus. OTHER FINDINGS: None. IMPRESSION: 1. Overall pattern of reticulonodular infiltrates at the lung bases predominantly but also scattered throughout all lobes bilaterally, mediastinal and retroperitoneal lymphadenopathy and multiple sclerotic bony changes particularly in the lumbosacral spine and pelvic bones is suspicious for malignancy with metastasis. The lack of any contrast material limits evaluation of the abdominal and pelvic viscera, particularly the solid organs. Consider possible diagnostic ultrasound or CT-guided left thoracentesis. 2. Differential diagnosis for pulmonary infiltrates is infectious or inflammatory causes. 3. No bowel air tract obstruction, free intrarenal gas or abdominal ascites.
[2018-05-25 19:06] LABS: MYCOPLASMA PNEUMONIAE IGM NEGATIVE (NEGATIVE)
--- NOTE | 2018-05-26 07:44 | PCM.STROKE ---
Interval History Critical Care Time Spent (in minutes): 20 Stroke Date: 05/25/18 - Treatment DVT Prophylaxis: Sequential compression device in place bilaterally Antiplatelet: Acetylsalicylic acid (ASA) (81 mg PO daily), Plavix (75 mg PO daily) Statin: Rosuvastatin (20 mg PO Q HS) - Education Written Stroke Education provided regarding: personal risk factors, stroke warning sign/symptoms (verbalizes understanding), how to activate emergency medical services, need to follow up after discharge NIHSS Stroke Scale - Date/Time Evaluation Performed Date Performed: 05/25/18 Time Performed: 08:09 When Was NIHSS Performed: 24 hours post onset S/S - How Severe is the Stroke Level of Consciousness: 0=Alert LOC to Questions: 0=Both comments correct LOC to commands: 0=Obeys both correctly Best Gaze: 0=Normal Visual: 0=No visual loss Facial: 1=Minor asymmetry Motor Arm - Left: 1=Drift noted before 10 sec (improved from previous examination) Motor Arm - Right: 0=No drift Motor Leg - Left: 1=Drift before 5 sec (improving from previous examination) Motor Leg - Right: 0=No drift Limb Ataxia: 0=Absent Sensory: 0=Normal Best Language: 0=No aphasia Dysarthia: 0=Normal articulation Extinction & Inattention (Neglect): 0=Normal, no object Score: 3 Exam - Vital Sign Vital Signs: Temp Pulse Resp BP Pulse Ox 98.1 F 81 20 120/76 95 05/26/18 04:35 05/26/18 04:35 05/26/18 04:35 05/26/18 04:35 05/26/18 07:32 Constitutional: No distress Right Pupil: Reactive Right Pupil Size (in mm): 3 Left Pupil: Reactive Left Pupil Size (in mm): 3 Cardiovascular: Regular rate & rhythm Mental Status: Normal: Orientation Cranial Nerve: Normal: Visual Stacy Neuro motor strength exam: Left Upper Extremity: 4, Right Upper Extremity: 5, Left Lower Extremity: 4, Right Lower Extremity: 5 Sensation: Intact to pin Coordination: Finger/nose (with minimal abnormality on his left side) Vascular Risk: Lipids - Data reviewed Laboratory results: 05/25/18 08:16 05/25/18 08:16 Triglycerides 131 mg/dL (0-149) 05/25/18 08:16 Cholesterol 184 mg/dL (0-199) 05/25/18 08:16 LDL Cholesterol Direct 105 mg/dL (0-129) 05/25/18 08:16 HDL Cholesterol 36 mg/dL (30-70) 05/25/18 08:16 Hemoglobin A1c 6.4 % (4.2-6.5) 05/25/18 08:16 Assessment and Plan (1) CVA (cerebral vascular accident) Assessment & Plan: Case discussed with Dr. Thornton, continue all current medical, physical, occupational, and speech therapies. Pending echocardiogram and MRI of the brain. Recommend permissive HTN until 7 PM today, treat BP above 220/110, keep head of bed elevated at least 30 degrees. normothermia. Status: Acute
[2018-05-26 10:01] LABS: BASO # 0.1 K/uL (0.0-0.2); BASO % 1.3 % (0.0-2.0); EOS # 0.2 K/uL (0.0-0.7); EOS % 2.9 % (0.0-4.0); HEMOGLOBIN 14.2 g/dL (12.0-18.0); LYMPH # 2.1 K/uL (1.0-4.3); LYMPH % 27.8 % (20.0-40.0); MEAN CORPUSCULAR HEMOGLOBIN 31.3 pg (27.0-31.0); MEAN CORPUSCULAR HGB CONC 34.8 g/dL (33.0-37.0); MEAN PLATELET VOLUME 6.9 fL (7.2-11.7); MONO # 0.8 K/uL (0.0-0.8); MONO % 10.1 % (0.0-10.0); NEUT # 4.4 K/uL (1.8-7.0); NEUT % 57.9 % (50.0-75.0); RBC 4.54 Mil/uL (4.40-5.90); RED CELL DISTRIBUTION WIDTH 13.8 % (11.5-14.5); WHITE BLOOD COUNT 7.6 K/uL (4.8-10.8)
[2018-05-26 10:17] LABS: ALB/GLOB RATIO 1.2 (1.0-2.1); ALBUMIN 3.6 g/dL (3.5-5.0); ALT/SGPT 17 U/L (21-72); AST/SGOT 28 U/L (17-59); BLOOD UREA NITROGEN 10 mg/dL (9-20); CALCIUM 9.2 mg/dl (8.6-10.4); GFR AFRICAN-AMERICAN > 60; GFR NON-AFRICAN AMERICAN > 60
[2018-05-26] MEDS: Nystatin 100,000 Units/ml Oral Susp 5 ml UD PO SCH ×4 (10:43→21:29)
[2018-05-26] MEDS: Azithromycin 500 MG in Sodium Chloride 0.9% 250 ML IVPB SCH (10:45)
--- NOTE | 2018-05-26 12:41 | MRI ---
Date of service: 05/26/2018 PROCEDURE: MRI BRAIN WITHOUT CONTRAST HISTORY: r/o CVA COMPARISON: Comparison made with prior CT scan brain 05/25/2018 TECHNIQUE: Multiplanar, multisequence MR images of the brain were obtained without intravenous contrast enhancement. FINDINGS: HEMORRHAGE: No acute parenchymal, subarachnoid or extra-axial hemorrhage. No hemosiderin deposition is identified on gradient echo weighted sequence. DWI: There is a small rounded vague area of restricted diffusion in the right thalamus which could likely representing an acute/ subacute infarct. In addition, there is another elliptical shaped area of restricted diffusion in the right occipito parietal watershed zone both of which are best seen on axial series 3, image number 15 that may also represent a small acute/subacute ischemic focus. In BRAIN PARENCHYMA: . Minimal diffuse/confluent chronic periventricular white matter ischemic changes are also felt present. Additionally, there are a few tiny focal areas of increased T2 signal seen scattered about the subcortical white matter both cerebral hemispheres likely representing tiny chronic lacunar-type infarcts. No obvious parenchymal nor extra-axial mass or collection. Moderate generalized volume loss. VENTRICLES: No obstructive hydrocephalus. CRANIUM: Unremarkable. ORBITS: Orbits and contents grossly unremarkable. PARANASAL SINUSES/MASTOIDS: Clear VASCULAR SYSTEM: Visualized major vascular flow voids at skull base patent. OTHER FINDINGS: None. IMPRESSION: There are small acute/subacute ischemic changes seen in the right thalamus and right occipito parietal watershed zone former slightly larger than latter. Note these findings were discussed with 6T Nurse Yebaoh at approximately 12:30 p.m. with written down and read back verification. . Minimal chronic periventricular white matter ischemic changes. . Moderate generalized volume loss. No acute intracranial hemorrhage.
--- NOTE | 2018-05-26 13:21 | CP.PCM.PN ---
Subjective - Date & Time of Evaluation Date of Evaluation: 05/26/18 Time of Evaluation: 13:19 - Subjective Subjective: PGY-1 Medicine Progress Note Patient seen and examined at bedside. Patient reports improved strength in left upper and lower extremity. Patient reports no weakness or visual deficits. Patient denies headaches, chest pain, sob, n/v, constipation or diarrhea. Objective - Vital Signs/Intake and Output Vital Signs (last 24 hours): Temp Pulse Resp BP Pulse Ox 98.4 F 81 18 113/74 95 05/26/18 07:00 05/26/18 07:00 05/26/18 07:00 05/26/18 07:00 05/26/18 07:32 Intake and Output: 05/26/18 05/26/18 06:59 18:59 Intake Total 1600 Output Total 800 Balance 800 - Medications Medications: Current Medications Aspirin (Aspirin Chewable) 81 mg PO DAILY [facility] Last Admin: 05/26/18 10:42 Dose: 81 mg Clopidogrel Bisulfate (Plavix) 75 mg PO DAILY [facility] Last Admin: 05/26/18 10:42 Dose: 75 mg Famotidine (Pepcid) 20 mg PO DAILY [facility] Last Admin: 05/26/18 10:43 Dose: 20 mg Sodium Chloride (Sodium Chloride 0.9%) 1,000 mls @ 100 mls/hr IV .Q10H [facility] Last Admin: 05/25/18 20:31 Dose: 100 mls/hr Ceftriaxone Sodium 1 gm/ (Sodium Chloride) 100 mls @ 100 mls/hr IVPB Q12H [facility] PRN Reason: Protocol Last Admin: 05/26/18 08:45 Dose: 100 mls/hr Azithromycin 500 mg/ Sodium (Chloride) 250 mls @ 250 mls/hr IVPB DAILY [facility] PRN Reason: Protocol Last Admin: 05/26/18 10:45 Dose: 250 mls/hr Nystatin (Nystatin Oral Susp) 5 ml PO QID [facility] Last Admin: 05/26/18 10:43 Dose: 5 ml Rosuvastatin Calcium (Crestor) 20 mg PO HS [facility] Last Admin: 05/25/18 21:30 Dose: 20 mg - Labs Labs: 05/26/18 09:55 05/26/18 06:38 PT 13.1 SECONDS (9.7-12.2) H 05/25/18 08:16 INR 1.2 05/25/18 08:16 APTT 29 SECONDS (21-34) 05/25/18 08:16 - Constitutional Appears: Non-toxic, No Acute Distress - Head Exam Head Exam: NORMAL INSPECTION, NORMOCEPHALIC - Eye Exam Eye Exam: EOMI, Normal appearance. absent: Nystagmus, Scleral icterus - Respiratory Exam Respiratory Exam: Clear to Ausculation Bilateral, NORMAL BREATHING PATTERN. absent: Rales, Rhonchi, Wheezes - Cardiovascular Exam Cardiovascular Exam: REGULAR RHYTHM, +S1, +S2. absent: Murmur - GI/Abdominal Exam GI & Abdominal Exam: Soft, Normal Bowel Sounds. absent: Distended, Firm, Tenderness - Extremities Exam Extremities Exam: Normal Inspection. absent: Pedal Edema - Neurological Exam Neurological Exam: Alert, Awake, Oriented x3 - Psychiatric Exam Psychiatric exam: Normal Affect, Normal Mood - Skin Skin Exam: Normal Color. absent: Diaphoretic, Rash Assessment and Plan - Assessment and Plan (Free Text) Assessment: Patient is a 53 y.o with no significant PMH presents to the hospital for left arm and leg weakness; patient awoke with these symptoms making him ineligible for t-PA; imaging suggests TIA > stroke, also found malignancy with possible mets; IR on board will do thoracentesis and biopsy Plan: TIA vs Stroke 05/[address] : no definite acute intracranial findings though mild atrophy is somewhat greater than expected for patient of 53 years age. small chronic lacune is seen at the left basal ganglia inferiorly. 8 Head/Neck CTA: Unremarkable CT angiography of the brain and neck; incidental mediastinal lymphadenopathy, large left pleural effusion and bilateral apical reticulonodular infiltrates identified. [address]: overall pattern of reticulonodular infiltrates at the lung bases predominantly but also scattered throughout all lobes bilaterally, mediastinal and retroperitoneal lympadenopathy and multiple sclerotic bony changes particularly in the lumbosacral spine and pelvic bones is suspicious for malignancy with metastasis. 8 Brain MRI: There are small acute/subacute ischemic changes seen in the right thalamus and right occipito parietal watershed zone Neurology Consulted: Dr. Thornton recommends following: Aspirin 81mg po daily Clopidogrel 75mg po daily Crestor 20mg po hs inge NS 75ml/hr Malignancy with possible mets 8: Reticulonodular infiltrates are identified bilaterally in pattern suspicious for infectious, inflammatory or neoplastic disease process. 8/ Chest CT: overall pattern of reticulonodular infiltrates at the lung bases predominantly but also scattered throughout all lobes bilaterally, mediastinal and retroperitoneal lympadenopathy and multiple sclerotic bony changes particularly in the lumbosacral spine and pelvic bones is suspicious for malignancy with metastasis. Heme/Onc Consulted: Dr. Malagon- recommendations appreciated Pulm Consulted: Dr. Jain IR: biopsy of spine, thoracentesis of pleural effusions with cell culture, cytology, and pleural fluid studies PSA pending Ceftriaxone and Azithromycin DC'ed as infectious process unlikely; Chest CT suggests malignancy over infectious process Mycoplasma IgM negative; Anti-staphylolysin O negative; Legionella pneumo AG pending (afebrile and no leukocytosis) Hyperlipidemia Crestor 20mg po hs inge Impaired glucose tolerance Hgb A1C=6.4 Oral thrush Nystatin 5ml po qid Prophylaxis GI prophylaxis: Pepcid 20mg po daily inge DVT prophylaxis not indicated at this time
[2018-05-26] MEDS: Sodium Chloride 0.9% 1,000 ML IV SCH (15:15)
[2018-05-26 15:42] VITALS: RESP 20
--- NOTE | 2018-05-26 16:20 | CP.PCM.CON ---
History of Present Illness - History of Present Illness History of Present Illness: Reason for consultation: pleural effusion 53-year-old male with no significant past medical history presented to emergency room after he was unable to move his left arm and leg which lasted for one hour and then gradually got better. Patient also complaining off slight cough and was seen by a game operator recently for shortness of breath and fall about 6 weeks ago. Patient has long history of smoking and was prescribed steroids and some inhalers. CAT scan of the chest consistent with left pleural effusion and a reticulonodular changes. patient also complaining of weight loss past 4-6 weeks PMD: none Allergies: NKDA PMHx: left groin hernia Psur- left arm infection and surgery Famhx: brother- from stomach CA at age 29 Father: emphysema Social: 1.5 pack ppd x 30+ years, drinks 4 drinks about once per month, denies drugs, lives alone, works construction Review of Systems - Review of Systems All systems: reviewed and no additional remarkable complaints except (shortness of breath) Past Patient History - Past Medical History & Family History Past Medical History?: Yes - Past Social History Smoking Status: Heavy Smoker > 10 Cigarettes Daily - CARDIAC Hx Cardiac Disorders: No - PULMONARY Hx Respiratory Disorders: No - NEUROLOGICAL Hx Neurological Disorder: No - HEENT Hx HEENT Problems: No - RENAL Hx Chronic Kidney Disease: No - ENDOCRINE/METABOLIC Hx Endocrine Disorders: No - HEMATOLOGICAL/ONCOLOGICAL Hx Blood Disorders: No - INTEGUMENTARY Hx Dermatological Problems: No - MUSCULOSKELETAL/RHEUMATOLOGICAL Hx Musculoskeletal Disorders: Yes Hx Falls: Yes Hx Unsteady Gait: Yes - GASTROINTESTINAL Hx Gastrointestinal Disorders: No - GENITOURINARY/GYNECOLOGICAL Hx Genitourinary Disorders: No - PSYCHIATRIC Hx Substance Use: No - SURGICAL HISTORY Hx Surgeries: Yes Other/Comment: left arm surgery - ANESTHESIA Hx Anesthesia: Yes Hx Anesthesia Reactions: No Meds Allergies/Adverse Reactions: Allergies Allergy/AdvReac Type Severity Reaction Status Date / Time No Known Allergies Allergy Verified 05/22/18 17:39 - Medications Medications: Current Medications Aspirin (Aspirin Chewable) 81 mg PO DAILY [facility] Last Admin: 05/26/18 10:42 Dose: 81 mg Clopidogrel Bisulfate (Plavix) 75 mg PO DAILY [facility] Last Admin: 05/26/18 10:42 Dose: 75 mg Famotidine (Pepcid) 20 mg PO DAILY [facility] Last Admin: 05/26/18 10:43 Dose: 20 mg Sodium Chloride (Sodium Chloride 0.9%) 1,000 mls @ 100 mls/hr IV .Q10H [facility] Last Admin: 05/25/18 20:31 Dose: 100 mls/hr Ceftriaxone Sodium 1 gm/ (Sodium Chloride) 100 mls @ 100 mls/hr IVPB Q12H [facility] PRN Reason: Protocol Last Admin: 05/26/18 08:45 Dose: 100 mls/hr Azithromycin 500 mg/ Sodium (Chloride) 250 mls @ 250 mls/hr IVPB DAILY [facility] PRN Reason: Protocol Last Admin: 05/26/18 10:45 Dose: 250 mls/hr Nystatin (Nystatin Oral Susp) 5 ml PO QID [facility] Last Admin: 05/26/18 15:00 Dose: 5 ml Rosuvastatin Calcium (Crestor) 20 mg PO HS [facility] Last Admin: 05/25/18 21:30 Dose: 20 mg Physical Exam - Head Exam Head Exam: ATRAUMATIC, NORMOCEPHALIC - ENT Exam ENT Exam: Mucous Membranes Moist - Neck Exam Neck exam: Positive for: Normal Inspection - Respiratory Exam Respiratory Exam: Decreased Breath Sounds (on the left side) - Cardiovascular Exam Cardiovascular Exam: REGULAR RHYTHM - GI/Abdominal Exam GI & Abdominal Exam: Normal Bowel Sounds, Soft - Extremities Exam Extremities exam: Positive for: normal inspection - Neurological Exam Neurological exam: Alert, Oriented x3 Results - Vital Signs Recent Vital Signs: Last Vital Signs Temp 98.4 F 05/26/18 15:00 Pulse 87 05/26/18 15:00 Resp 20 05/26/18 15:00 BP 123/69 05/26/18 15:00 Pulse Ox 95 05/26/18 15:00 - Labs Result Diagrams: 05/26/18 09:55 05/26/18 06:38 Labs: Laboratory Results - last 24 hr 05/25/18 05/25/18 05/25/18 08:06 13:38 16:41 WBC RBC Hgb Hct MCV MCH MCHC RDW Plt Count MPV Neut % (Auto) Lymph % (Auto) [place] % (Auto) Eos % (Auto) Baso % (Auto) Neut # (Auto) Lymph # (Auto) [place] # (Auto) Eos # (Auto) Baso # (Auto) Sodium Potassium Chloride Carbon Dioxide Anion Gap BUN Creatinine Est GFR ( Amer) Est GFR (Non-Af Amer) POC Glucose (mg/dL) 105 Random Glucose Calcium Phosphorus Magnesium Total Bilirubin AST ALT Alkaline Phosphatase NT-Pro-B Natriuret Pep Total Protein Albumin Globulin Albumin/Globulin Ratio Vitamin B12 25-OH Vitamin D Total Free T4 1.52 TSH 3rd Generation Mycoplasma pneumon IgM Negative Anti-Staphylolysin O 05/25/18 05/25/18 05/26/18 16:41 16:43 06:05 WBC RBC Hgb Hct MCV MCH MCHC RDW Plt Count MPV Neut % (Auto) Lymph % (Auto) [place] % (Auto) Eos % (Auto) Baso % (Auto) Neut # (Auto) Lymph # (Auto) [place] # (Auto) Eos # (Auto) Baso # (Auto) Sodium Potassium Chloride Carbon Dioxide Anion Gap BUN Creatinine Est GFR ( Amer) Est GFR (Non-Af Amer) POC Glucose (mg/dL) 98 Random Glucose Calcium Phosphorus Magnesium Total Bilirubin AST ALT Alkaline Phosphatase NT-Pro-B Natriuret Pep 26.8 Total Protein Albumin Globulin Albumin/Globulin Ratio Vitamin B12 25-OH Vitamin D Total Free T4 TSH 3rd Generation 0.49 Mycoplasma pneumon IgM Anti-Staphylolysin O Negative 05/26/18 05/26/18 05/26/18 06:38 06:38 09:55 WBC 7.6 RBC 4.54 Hgb 14.2 Hct 40.8 MCV 90.0 MCH 31.3 H MCHC 34.8 RDW 13.8 Plt Count 475 H MPV 6.9 L Neut % (Auto) 57.9 Lymph % (Auto) 27.8 [place] % (Auto) 10.1 H Eos % (Auto) 2.9 Baso % (Auto) 1.3 Neut # (Auto) 4.4 Lymph # (Auto) 2.1 [place] # (Auto) 0.8 Eos # (Auto) 0.2 Baso # (Auto) 0.1 Sodium 143 Potassium 4.0 Chloride 107 Carbon Dioxide 21 L Anion Gap 18 BUN 10 Creatinine 0.7 L Est GFR ( Amer) > 60 Est GFR (Non-Af Amer) > 60 POC Glucose (mg/dL) Random Glucose 103 Calcium 9.2 Phosphorus 3.8 Magnesium 1.9 Total Bilirubin 0.6 AST 28 ALT 17 L Alkaline Phosphatase 123 NT-Pro-B Natriuret Pep Total Protein 6.6 Albumin 3.6 Globulin 3.0 Albumin/Globulin Ratio 1.2 Vitamin B12 600 25-OH Vitamin D Total 35.3 Free T4 TSH 3rd Generation Mycoplasma pneumon IgM Anti-Staphylolysin O Assessment & Plan (1) Pleural effusion Status: Acute Comment: with reticulonodular changes on CAT scan. Thoracentesis. Patient is on Plavix for possible cVA. Continue antibiotics
[2018-05-26] MEDS: Albuterol-Ipratrop 3 mg / 0.5 (3 ml) UD INH SCH (19:38)
[2018-05-26 20:46] LABS: LEGIONELLA AG URINE NEGATIVE (NEGATIVE)
--- NOTE | 2018-05-26 22:40 | CARD ---
APPROVED REPORT Date of service: 05/26/2018 EXAM: Two-dimensional and M-mode echocardiogram with Doppler and color Doppler. Other Information Quality : TDSRhythm : INDICATION CVA/TIA Pneumonia 2D DIMENSIONS IVSd1.1 (0.7-1.1cm)LVDd3.9 (3.9-5.9cm) PWd1.3 (0.7-1.1cm)LVDs2.5 (2.5-4.0cm) FS (%) 35.5 %LVEF (%)65.5 (>50%) M-Mode DIMENSIONS Left Atrium (MM)2.63 (2.5-4.0cm)IVSd1.14 (0.7-1.1cm) Aortic Root3.53 (2.2-3.7cm)LVDd4.12 (4.0-5.6cm) Aortic Cusp Exc.2.49 (1.5-2.0cm)PWd1.26 (0.7-1.1cm) FS (%) 42 %LVDs2.39 (2.0-3.8cm) LVEF (%)73 (>50%) Mitral Valve MV E Absxuvpg95.0cm/sMV A Dwwefads01.8cm/sE/A ratio1.0 TDI E/Lateral E'0.0E/Medial E'0.0 LEFT VENTRICLE The left ventricle is normal size. There is borderline asymmetric left ventricular hypertrophy. Left ventricle systolic function appears normal. The Ejection Fraction is 65-70%. There is normal LV segmental wall motion. The left ventricular diastolic function is normal. No left ventricle thrombus noted on this study. RIGHT VENTRICLE The right ventricle looks normal size. The right ventricular systolic function is normal. ATRIA The left atrium size is normal. The right atrium size is normal. AORTIC VALVE The aortic valve is mildly sclerotic. The aortic valve is probably trileaflet. No aortic regurgitation is present. There is no aortic valvular stenosis. MITRAL VALVE Mitral annular calcification is mild. There is no evidence of mitral valve prolapse. There is no mitral valve stenosis. There is no mitral valve regurgitation noted. TRICUSPID VALVE The tricuspid valve is normal in structure. There is trace to mild tricuspid regurgitation. Right ventricular systolic pressure is estimated at less than 30 mmHg. There is no pulmonary hypertension. PULMONIC VALVE The pulmonic valve is not well visualized. GREAT VESSELS The IVC is normal in size and collapses >50% with inspiration. PERICARDIAL EFFUSION There is no pericardial effusion. There is no pleural effusion. <Conclusion> Technically difficult study. Poor ultrasonic window. The left ventricle is normal size. There is borderline asymmetric left ventricular hypertrophy. Left ventricle systolic function appears normal. The Ejection Fraction is 65-70%. The left ventricular diastolic function is normal. The right ventricle looks normal size. The right ventricular systolic function is normal. The left atrium size is normal. The right atrium size is normal.
--- NOTE | 2018-05-26 23:59 | CARD ---
APPROVED REPORT Date of service: 05/25/2018 EKG Measurement Heart [id number] <Conclusion> Normal sinus rhythm Normal ECG
[2018-05-27] MEDS: Albuterol-Ipratrop 3 mg / 0.5 (3 ml) UD INH SCH ×3 (03:02→13:16)
--- NOTE | 2018-05-27 07:13 | CP.PCM.PN ---
Subjective - Date & Time of Evaluation Date of Evaluation: 05/27/18 Time of Evaluation: 09:30 - Subjective Subjective: PGY-1 Lyssa Bunch D.O. Medicine progress note for Dr. Varela service: Objective - Vital Signs/Intake and Output Vital Signs (last 24 hours): Temp Pulse Resp BP Pulse Ox 98.0 F 76 20 121/77 94 L 05/27/18 04:56 05/27/18 04:56 05/27/18 04:56 05/27/18 04:56 05/27/18 04:56 Intake and Output: 05/27/18 05/27/18 06:59 18:59 Intake Total 1050 Balance 1050 - Medications Medications: Current Medications Albuterol/Ipratropium (Duoneb 3 Mg/0.5 Mg (3 Ml) Ud) 3 ml INH RQ6 [facility] Last Admin: 05/27/18 03:02 Dose: Not Given Aspirin (Aspirin Chewable) 81 mg PO DAILY [facility] Last Admin: 05/26/18 10:42 Dose: 81 mg Clopidogrel Bisulfate (Plavix) 75 mg PO DAILY [facility] Last Admin: 05/26/18 10:42 Dose: 75 mg Famotidine (Pepcid) 20 mg PO DAILY [facility] Last Admin: 05/26/18 10:43 Dose: 20 mg Sodium Chloride (Sodium Chloride 0.9%) 1,000 mls @ 100 mls/hr IV .Q10H [facility] Last Admin: 05/26/18 15:15 Dose: Not Given Ceftriaxone Sodium 1 gm/ (Sodium Chloride) 100 mls @ 100 mls/hr IVPB Q12H [facility] PRN Reason: Protocol Last Admin: 05/26/18 20:29 Dose: 100 mls/hr Azithromycin 500 mg/ Sodium (Chloride) 250 mls @ 250 mls/hr IVPB DAILY [facility] PRN Reason: Protocol Last Admin: 05/26/18 10:45 Dose: 250 mls/hr Nystatin (Nystatin Oral Susp) 5 ml PO QID [facility] Last Admin: 05/26/18 21:29 Dose: 5 ml Rosuvastatin Calcium (Crestor) 20 mg PO HS [facility] Last Admin: 05/26/18 21:28 Dose: 20 mg - Labs Labs: 05/26/18 09:55 05/26/18 06:38 PT 13.1 SECONDS (9.7-12.2) H 05/25/18 08:16 INR 1.2 05/25/18 08:16 APTT 29 SECONDS (21-34) 05/25/18 08:16 Assessment and Plan - Assessment and Plan (Free Text) Assessment: Patient is a 53 y.o with no significant PMH presents to the hospital for left arm and leg weakness; patient awoke with these symptoms making him ineligible for t-PA; imaging suggests TIA > stroke, also found malignancy with possible mets; IR on board will do thoracentesis and biopsy. Plan: TIA vs Stroke 05/[address] : no definite acute intracranial findings though mild atrophy is somewhat greater than expected for patient of 53 years age. small chronic lacune is seen at the left basal ganglia inferiorly. 05/25 Head/Neck CTA: Unremarkable CT angiography of the brain and neck; incidental mediastinal lymphadenopathy, large left pleural effusion and bilateral apical reticulonodular infiltrates identified. 05/[address]: overall pattern of reticulonodular infiltrates at the lung bases predominantly but also scattered throughout all lobes bilaterally, mediastinal and retroperitoneal lympadenopathy and multiple sclerotic bony changes particularly in the lumbosacral spine and pelvic bones is suspicious for malignancy with metastasis. 05/26 Brain MRI: There are small acute/subacute ischemic changes seen in the right thalamus and right occipito parietal watershed zone Neurology Consulted: Dr. Thornton recommends following: Aspirin 81mg po daily Clopidogrel 75mg po daily Crestor 20mg po hs inge NS 75ml/hr Malignancy with possible mets 05/25: Reticulonodular infiltrates are identified bilaterally in pattern suspicious for infectious, inflammatory or neoplastic disease process. 05/[address]: overall pattern of reticulonodular infiltrates at the lung bases predominantly but also scattered throughout all lobes bilaterally, mediastinal and retroperitoneal lympadenopathy and multiple sclerotic bony changes particularly in the lumbosacral spine and pelvic bones is suspicious for malignancy with metastasis. Heme/Onc Consulted: Dr. Malagon- recommendations appreciated Pulm Consulted: Dr. Jain IR: biopsy of spine, thoracentesis of pleural effusions with cell culture, cytology, and pleural fluid studies PSA pending Ceftriaxone and Azithromycin DC'ed as infectious process unlikely; Chest CT suggests malignancy over infectious process Mycoplasma IgM negative; Anti-staphylolysin O negative; Legionella pneumo AG pending (afebrile and no leukocytosis) Hyperlipidemia Crestor 20mg po hs inge Impaired glucose tolerance Hgb A1C=6.4 Oral thrush Nystatin 5ml po qid Prophylaxis GI prophylaxis: Pepcid 20mg po daily inge DVT prophylaxis not indicated at this time
--- NOTE | 2018-05-27 07:30 | CP.PCM.PN ---
Subjective - Date & Time of Evaluation Date of Evaluation: 05/27/18 Time of Evaluation: 07:27 - Subjective Subjective: Mr. Marquez was seen and examined at the bedside. He remains alert, oriented x3. He denies any headache, dizziness, blurred vision, diplopia, nausea, or vomiting. He is able to follow simple commands. He further states of not drinking water prior to admission, but able to tolerate while in the hospital. Educated the patient regarding his risks for stroke, verbalizes understanding. MRI of the brain showed There are small acute/subacute ischemic changes seen in the right thalamus and right occipito parietal watershed zone former slightly larger than latter. Minimal chronic periventricular white matter ischemic changes. . Moderate generalized volume loss. No acute intracranial hemorrhage. Echocardiogram showed normal EF and no PFO or thrombus. There was no untoward events overnight. Objective - Vital Signs/Intake and Output Vital Signs (last 24 hours): Temp Pulse Resp BP Pulse Ox 98.0 F 76 20 121/77 94 L 05/27/18 04:56 05/27/18 04:56 05/27/18 04:56 05/27/18 04:56 05/27/18 04:56 Intake and Output: 05/27/18 05/27/18 06:59 18:59 Intake Total 1050 Balance 1050 - Medications Medications: Current Medications Albuterol/Ipratropium (Duoneb 3 Mg/0.5 Mg (3 Ml) Ud) 3 ml INH RQ6 [facility] Last Admin: 05/27/18 03:02 Dose: Not Given Aspirin (Aspirin Chewable) 81 mg PO DAILY [facility] Last Admin: 05/26/18 10:42 Dose: 81 mg Clopidogrel Bisulfate (Plavix) 75 mg PO DAILY [facility] Last Admin: 05/26/18 10:42 Dose: 75 mg Famotidine (Pepcid) 20 mg PO DAILY [facility] Last Admin: 05/26/18 10:43 Dose: 20 mg Sodium Chloride (Sodium Chloride 0.9%) 1,000 mls @ 100 mls/hr IV .Q10H [facility] Last Admin: 05/26/18 15:15 Dose: Not Given Ceftriaxone Sodium 1 gm/ (Sodium Chloride) 100 mls @ 100 mls/hr IVPB Q12H [facility] PRN Reason: Protocol Last Admin: 05/26/18 20:29 Dose: 100 mls/hr Azithromycin 500 mg/ Sodium (Chloride) 250 mls @ 250 mls/hr IVPB DAILY [facility] PRN Reason: Protocol Last Admin: 05/26/18 10:45 Dose: 250 mls/hr Nystatin (Nystatin Oral Susp) 5 ml PO QID [facility] Last Admin: 05/26/18 21:29 Dose: 5 ml Rosuvastatin Calcium (Crestor) 20 mg PO HS [facility] Last Admin: 05/26/18 21:28 Dose: 20 mg - Labs Labs: 05/26/18 09:55 05/26/18 06:38 PT 13.1 SECONDS (9.7-12.2) H 05/25/18 08:16 INR 1.2 05/25/18 08:16 APTT 29 SECONDS (21-34) 05/25/18 08:16 - Constitutional Appears: No Acute Distress - Head Exam Head Exam: NORMAL INSPECTION - Eye Exam Pupil Exam: PERRL - Neurological Exam Neurological Exam: Alert, Awake, Oriented x3 Neuro motor strength exam: Left Upper Extremity: 5, Right Upper Extremity: 5, Left Lower Extremity: 5, Right Lower Extremity: 5 Additional comments: alert, oriented, follows all commands, sensation is intact. Assessment and Plan (1) CVA (cerebral vascular accident) Assessment & Plan: Case discussed with Dr. Thornton, continue all current medical, physical, occupational, and speech therapies. Recommend hydration, blood pressure control , keep head of bed elevated at least 30 degrees while in bed, normothermia, any further physical therapy due to his gait instability. Recommend to follow up with an outpatient neurologist upon discharge, if patient would to follow up with Dr. Thornton at [address] [place] [address]. [address] [place] [address]. Tel. [phone]. Status: Acute
[2018-05-27 07:39] LABS: BASO # 0.1 K/uL (0.0-0.2); BASO % 0.9 % (0.0-2.0); EOS # 0.4 K/uL (0.0-0.7); EOS % 5.4 % (0.0-4.0); HEMOGLOBIN 13.4 g/dL (12.0-18.0); LYMPH # 2.5 K/uL (1.0-4.3); LYMPH % 32.3 % (20.0-40.0); MEAN CELL VOLUME 89.1 fL (80.0-94.0); MEAN CORPUSCULAR HEMOGLOBIN 31.6 pg (27.0-31.0); MEAN CORPUSCULAR HGB CONC 35.4 g/dL (33.0-37.0); MEAN PLATELET VOLUME 6.7 fL (7.2-11.7); MONO # 0.7 K/uL (0.0-0.8); MONO % 8.9 % (0.0-10.0); NEUT % 52.5 % (50.0-75.0); NRBC % 0.1 % (0.0-2.0); RBC 4.25 Mil/uL (4.40-5.90); RED CELL DISTRIBUTION WIDTH 13.3 % (11.5-14.5); WHITE BLOOD COUNT 7.6 K/uL (4.8-10.8)
[2018-05-27 07:47] LABS: ALB/GLOB RATIO 1.4 (1.0-2.1); ALBUMIN 3.5 g/dL (3.5-5.0); ALT/SGPT 26 U/L (21-72); AST/SGOT 21 U/L (17-59); BLOOD UREA NITROGEN 11 mg/dL (9-20); CALCIUM 8.9 mg/dl (8.6-10.4); GFR AFRICAN-AMERICAN > 60; GFR NON-AFRICAN AMERICAN > 60
[2018-05-27 08:24] VITALS: O2SAT 95
[2018-05-27] MEDS ORDERED: Heparin25000 units/250ml 1/2NS 25,000 UNITS/250 ML BAG IV PRN (10:10)
[2018-05-27] MEDS ORDERED: Multiple Vitamins Oral Solution PO SCH (10:15)
--- NOTE | 2018-05-27 10:50 | CP.PCM.CON ---
Past Patient History - Past Medical History & Family History Past Medical History?: Yes - Past Social History Smoking Status: Heavy Smoker > 10 Cigarettes Daily - CARDIAC Hx Cardiac Disorders: No - PULMONARY Hx Respiratory Disorders: No - NEUROLOGICAL Hx Neurological Disorder: No - HEENT Hx HEENT Problems: No - RENAL Hx Chronic Kidney Disease: No - ENDOCRINE/METABOLIC Hx Endocrine Disorders: No - HEMATOLOGICAL/ONCOLOGICAL Hx Blood Disorders: No - INTEGUMENTARY Hx Dermatological Problems: No - MUSCULOSKELETAL/RHEUMATOLOGICAL Hx Musculoskeletal Disorders: Yes Hx Falls: Yes Hx Unsteady Gait: Yes - GASTROINTESTINAL Hx Gastrointestinal Disorders: No - GENITOURINARY/GYNECOLOGICAL Hx Genitourinary Disorders: No - PSYCHIATRIC Hx Substance Use: No - SURGICAL HISTORY Hx Surgeries: Yes Other/Comment: left arm surgery - ANESTHESIA Hx Anesthesia: Yes Hx Anesthesia Reactions: No Meds Allergies/Adverse Reactions: Allergies Allergy/AdvReac Type Severity Reaction Status Date / Time No Known Allergies Allergy Verified 05/22/18 17:39 - Medications Medications: Current Medications Albuterol/Ipratropium (Duoneb 3 Mg/0.5 Mg (3 Ml) Ud) 3 ml INH RQ6 [facility] Last Admin: 05/27/18 07:15 Dose: 3 ml Aspirin (Aspirin Chewable) 81 mg PO DAILY [facility] Last Admin: 05/26/18 10:42 Dose: 81 mg Clopidogrel Bisulfate (Plavix) 75 mg PO DAILY [facility] Last Admin: 05/26/18 10:42 Dose: 75 mg Famotidine (Pepcid) 20 mg PO DAILY [facility] Last Admin: 05/26/18 10:43 Dose: 20 mg Folic Acid (Folic Acid) 1 mg PO DAILY [facility] Sodium Chloride (Sodium Chloride 0.9%) 1,000 mls @ 100 mls/hr IV .Q10H [facility] Last Admin: 05/26/18 15:15 Dose: Not Given Ceftriaxone Sodium 1 gm/ (Sodium Chloride) 100 mls @ 100 mls/hr IVPB Q12H [facility] PRN Reason: Protocol Last Admin: 05/26/18 20:29 Dose: 100 mls/hr Azithromycin 500 mg/ Sodium (Chloride) 250 mls @ 250 mls/hr IVPB DAILY [facility] PRN Reason: Protocol Last Admin: 05/26/18 10:45 Dose: 250 mls/hr Heparin Sodium/Sodium Chloride (Heparin 57491 Units/250ml 1/2 Normal Saline) 25 ,000 units in 250 mls @ 8.618 mls/hr IV .Q24H PRN; Protocol; 10 UNITS/KG/HR PRN Reason: PROTOCOL Multivitamins/Vitamin C (Multi-Delyn Liquid) 5 ml PO DAILY [facility] Nystatin (Nystatin Oral Susp) 5 ml PO QID [facility] Last Admin: 05/26/18 21:29 Dose: 5 ml Rosuvastatin Calcium (Crestor) 20 mg PO HS [facility] Last Admin: 05/26/18 21:28 Dose: 20 mg Thiamine HCl (Vitamin B1 Tab) 100 mg PO DAILY [facility] Results - Vital Signs Recent Vital Signs: Last Vital Signs Temp 97.8 F 05/27/18 07:20 Pulse 84 05/27/18 07:20 Resp 20 05/27/18 07:20 BP 112/63 05/27/18 07:20 Pulse Ox 95 05/27/18 07:20 - Labs Result Diagrams: 05/27/18 07:22 05/27/18 07:22 Labs: Laboratory Results - last 24 hr 05/25/18 05/26/18 05/26/18 16:41 06:05 16:26 WBC RBC Hgb Hct MCV MCH MCHC RDW Plt Count MPV Neut % (Auto) Lymph % (Auto) [place] % (Auto) Eos % (Auto) Baso % (Auto) Neut # (Auto) Lymph # (Auto) [place] # (Auto) Eos # (Auto) Baso # (Auto) Sodium Potassium Chloride Carbon Dioxide Anion Gap BUN Creatinine Est GFR ( Amer) Est GFR (Non-Af Amer) POC Glucose (mg/dL) 98 117 H Random Glucose Calcium Phosphorus Magnesium Total Bilirubin AST ALT Alkaline Phosphatase Total Protein Albumin Globulin Albumin/Globulin Ratio Ur L.pneumophila Ag Negative 05/26/18 05/27/18 05/27/18 21:59 07:22 07:22 WBC 7.6 RBC 4.25 L Hgb 13.4 Hct 37.8 MCV 89.1 MCH 31.6 H MCHC 35.4 RDW 13.3 Plt Count 464 H MPV 6.7 L Neut % (Auto) 52.5 Lymph % (Auto) 32.3 [place] % (Auto) 8.9 Eos % (Auto) 5.4 H Baso % (Auto) 0.9 Neut # (Auto) 4.0 Lymph # (Auto) 2.5 [place] # (Auto) 0.7 Eos # (Auto) 0.4 Baso # (Auto) 0.1 Sodium 141 Potassium 3.7 Chloride 108 H Carbon Dioxide 24 Anion Gap 14 BUN 11 Creatinine 0.7 L Est GFR ( Amer) > 60 Est GFR (Non-Af Amer) > 60 POC Glucose (mg/dL) 98 Random Glucose 101 Calcium 8.9 Phosphorus 3.6 Magnesium 1.9 Total Bilirubin 0.3 AST 21 ALT 26 Alkaline Phosphatase 112 Total Protein 6.1 L Albumin 3.5 Globulin 2.6 Albumin/Globulin Ratio 1.4 Ur L.pneumophila Ag
[2018-05-27] MEDS: Azithromycin 500 MG in Sodium Chloride 0.9% 250 ML IVPB SCH (11:03)
[2018-05-27] MEDS: Nystatin 100,000 Units/ml Oral Susp 5 ml UD PO SCH ×2 (11:04→14:26)
[2018-05-27] MEDS: Sodium Chloride 0.9% 1,000 ML IV SCH (11:11)
--- NOTE | 2018-05-27 11:21 | CP.PCM.DIS ---
Provider - Provider Date of Admission: 05/25/18 09:13 Attending physician: Óscar Albarran MD Primary care physician: none Consults: neuro (Hillary), pulm (Cristobal), hem/onc (Manas), PT Time Spent in preparation of Discharge (in minutes): 45 Diagnosis - Discharge Diagnosis (1) CVA (cerebral vascular accident) Status: Acute Priority: High (2) Multiple lesions of metastatic malignancy Status: Acute Priority: Medium (3) Oral thrush Status: Resolved Priority: Low (4) Hyperlipidemia Status: Chronic Priority: Low (5) Impaired glucose tolerance Status: Chronic Priority: Low Hospital Course - Lab Results Lab Results: Micro Results 05/25/18 09:00 Blood Blood Culture - Preliminary NO GROWTH AFTER 48 HOURS 05/25/18 09:20 Blood Blood Culture - Preliminary NO GROWTH AFTER 48 HOURS Most Recent Lab Values WBC 7.6 K/uL (4.8-10.8) 05/27/18 07:22 RBC 4.25 Mil/uL (4.40-5.90) L 05/27/18 07:22 Hgb 13.4 g/dL (12.0-18.0) 05/27/18 07:22 Hct 37.8 % (35.0-51.0) 05/27/18 07:22 MCV 89.1 fL (80.0-94.0) 05/27/18 07:22 MCH 31.6 pg (27.0-31.0) H 05/27/18 07:22 MCHC 35.4 g/dL (33.0-37.0) 05/27/18 07:22 RDW 13.3 % (11.5-14.5) 05/27/18 07:22 Plt Count 464 K/uL (130-400) H 05/27/18 07:22 MPV 6.7 fL (7.2-11.7) L 05/27/18 07:22 Neut % (Auto) 52.5 % (50.0-75.0) 05/27/18 07:22 Lymph % (Auto) 32.3 % (20.0-40.0) 05/27/18 07:22 [place] % (Auto) 8.9 % (0.0-10.0) 05/27/18 07:22 Eos % (Auto) 5.4 % (0.0-4.0) H 05/27/18 07:22 Baso % (Auto) 0.9 % (0.0-2.0) 05/27/18 07:22 Neut # (Auto) 4.0 K/uL (1.8-7.0) 05/27/18 07:22 Lymph # (Auto) 2.5 K/uL (1.0-4.3) 05/27/18 07:22 [place] # (Auto) 0.7 K/uL (0.0-0.8) 05/27/18 07:22 Eos # (Auto) 0.4 K/uL (0.0-0.7) 05/27/18 07:22 Baso # (Auto) 0.1 K/uL (0.0-0.2) 05/27/18 07:22 PT 13.1 SECONDS (9.7-12.2) H 05/25/18 08:16 INR 1.2 05/25/18 08:16 APTT 29 SECONDS (21-34) 05/25/18 08:16 Sodium 141 mmol/L (132-148) 05/27/18 07:22 Potassium 3.7 mmol/L (3.6-5.2) 05/27/18 07:22 Chloride 108 mmol/L (98-107) H 05/27/18 07:22 Carbon Dioxide 24 mmol/L (22-30) 05/27/18 07:22 Anion Gap 14 (10-20) 05/27/18 07:22 BUN 11 mg/dL (9-20) 05/27/18 07:22 Creatinine 0.7 mg/dL (0.8-1.5) L 05/27/18 07:22 Est GFR ( Amer) > 60 05/27/18 07:22 Est GFR (Non-Af Amer) > 60 05/27/18 07:22 POC Glucose (mg/dL) 109 mg/dL (65-110) 05/27/18 11:05 Random Glucose 101 mg/dL (75-110) 05/27/18 07:22 Hemoglobin A1c 6.4 % (4.2-6.5) 05/25/18 08:16 Calcium 8.9 mg/dl (8.6-10.4) 05/27/18 07:22 Phosphorus 3.6 mg/dL (2.5-4.5) 05/27/18 07:22 Magnesium 1.9 mg/dL (1.6-2.3) 05/27/18 07:22 Total Bilirubin 0.3 mg/dL (0.2-1.3) 05/27/18 07:22 AST 21 U/L (17-59) 05/27/18 07:22 ALT 26 U/L (21-72) 05/27/18 07:22 Alkaline Phosphatase 112 U/L (38-126) 05/27/18 07:22 Troponin I < 0.0120 ng/mL (0.00-0.120) 05/25/18 08:16 NT-Pro-B Natriuret Pep 26.8 pg/mL (0-900) 05/25/18 16:43 Total Protein 6.1 g/dL (6.3-8.3) L 05/27/18 07:22 Albumin 3.5 g/dL (3.5-5.0) 05/27/18 07:22 Globulin 2.6 gm/dL (2.2-3.9) 05/27/18 07:22 Albumin/Globulin Ratio 1.4 (1.0-2.1) 05/27/18 07:22 Triglycerides 131 mg/dL (0-149) 05/25/18 08:16 Cholesterol 184 mg/dL (0-199) 05/25/18 08:16 LDL Cholesterol Direct 105 mg/dL (0-129) 05/25/18 08:16 HDL Cholesterol 36 mg/dL (30-70) 05/25/18 08:16 Vitamin B12 600 pg/mL (239-931) 05/26/18 06:38 25-OH Vitamin D Total 35.3 NG/ML (30.0-100.0) 05/26/18 06:38 Free T4 1.52 ng/dL (0.78-2.19) 05/25/18 13:38 TSH 3rd Generation 0.49 mIU/L (0.46-4.68) 05/25/18 16:43 Ur L.pneumophila Ag Negative (NEGATIVE) 05/25/18 16:41 Mycoplasma pneumon IgM Negative (NEGATIVE) 05/25/18 16:41 Anti-Staphylolysin O Negative (NEGATIVE) 05/25/18 16:41 Blood Type O NEGATIVE 05/25/18 08:16 Antibody Screen Negative 05/25/18 08:16 - Hospital Course Hospital Course: Patient is a 53 year old male with no significant past medical history who presented to the ED because he woke up this morning and was not able to move his left arm or leg. He immediately called his son who noticed his speech sounded slurred. An ambulance was called to take the patient to the ED. Patient says he is unsure if he had decreased sensation on the left side at that time but currently does not. Patient says his son also noticed some left lip drooping. Patient says the inability to move his left side lasted for about 1 hour and he has gradually been obtaining more strength. Currently patient feels weaker on the left side, but is able to move the left side. Patient says nothing like this has ever happened before. Patient denies any headache, dizziness, blurred vision, chest pain, abdominal pain, nausea, vomiting, constipation, or diarrhea. Patient denies weight loss, but as per family they think he has lost a lot of weight recently. Of note, in the past few weeks patient has been having some shortness of breath. Patient went to a communication center coordinator, Dr. Ortega, who prescribed him Levofloxacin because his throat look inflamed. Patient was also given a steroid taper and an inhaler. Additionally patient had a fall about 6 weeks ago. No fractures were ever found. Patient came into the ED on 05/20 for low back pain twice. Lumbar x-ray was done which showed chronic pars defect of L5. Patient was sent home with cyclobenzaprine. Patient returned on 05/22 and given Ultram 50mg po q6h prn. Patient only took this medication once or twice as he did not like how it made him feel. Upon admissoin, CT head did not demonstrate acute bleed, and CTA head and neck was unremarkable. MRI brain revealed small acute/subacute ischemic changes of the right thalamus and right occipito-parietal watershed area. Neurology (Korya ) was consulted, and the patient was started on ASA 81 and Plavix. He was also started on Crestor due to abnormal lipid panel. Due to SOB, patient was evaluated for PNA. CXR showed reticulonodular infiltrates b/l. Pulmonology (Cristobal ) was consulted, and the patient was started on azithromycin and ceftriaxone. Blood Cx remained negative >[address] of the chest/abd/pelvis demonstrated reticulonodular infiltrates throughout both lung bearden, mediastinal and retroperitoneal lymphadenopathy, and multiple sclerotic bony changes in LS spine and pelvic highly suspicious for malignancy. Hem/onc (Manas ) was consulted. Patient complained of oral thrush, likely 2/2 new use of inhaler. Treated with nystatin and resolved by discharge. Upon discharge, the patient's motor deficits had resolved. He denies sensory deficits. He denied weakness. He will follow-up with PT as an outpatient. He denied SOB or chest pain. He was sleeping and eating well. Imaging findings were explained to patient along with our suspicion for malignancy with metastasis. Suspect lung as primary given patient's smoking history or prostate given PSA >500. He will continue malignancy work-up as an outpatient, including thoracentesis with IR (Dr. Echeverria) at [facility] next week. Discharge Exam - Head Exam Head Exam: ATRAUMATIC, NORMAL INSPECTION, NORMOCEPHALIC - Eye Exam Eye Exam: EOMI, Normal appearance - ENT Exam ENT Exam: Mucous Membranes Moist, Normal Oropharynx - Neck Exam Neck exam: Full Rom, Normal Inspection - Respiratory Exam Respiratory Exam: Decreased Breath Sounds (bilateral), NORMAL BREATHING PATTERN - Cardiovascular Exam Cardiovascular Exam: REGULAR RHYTHM, +S1, +S2 - GI/Abdominal Exam GI & Abdominal Exam: Normal Bowel Sounds, Soft, Unremarkable - Rectal Exam Rectal Exam: Deferred - Extremities Exam Extremities exam: full ROM, normal inspection, pedal pulses present - Back Exam Back exam: NORMAL INSPECTION - Neurological Exam Neurological exam: Alert, CN II-XII Intact, Normal Gait, Oriented x3 - Psychiatric Exam Psychiatric exam: Normal Affect, Normal Mood - Skin Skin Exam: Dry, Intact, Normal Color Discharge Plan - Discharge Medications Prescriptions: Aspirin [Aspirin Chewable] 81 mg PO DAILY #30 chew Clopidogrel [Plavix] 75 mg PO DAILY #30 tab Rosuvastatin Calcium [Crestor] 20 mg PO HS #30 tab - Follow Up Plan Condition: IMPROVED Disposition: HOME/ ROUTINE Patient education suggested?: Yes Instructions: Heart Healthy Diet, Quitting Smoking for Older Adults, Smoking: Not Just Harmful to Your Lungs and Heart, Stroke (DC), Aspirin, Clopidogrel, Rosuvastatin Additional Instructions: Patient is cleared for discharge as per Dr. Albarran. He will establish care with primary care physician Dr. Donovan within 1 week of discharge. [facility] interventional radiology department will call the patient to schedule a thoracentesis and possible spine biopsy next week with Dr. Echeverria. The patient was instructed to stop aspirin and Plavix for the 3 days prior to these procedures. He will follow-up with communication center coordinator Dr. Jain and medical oncologist Dr. Malagon within 1 week of getting the thoracentesis done. He is being discharged on the following prescriptions: Aspirin 81 mg take one by mouth daily Plavix 75 mg take one by mouth daily Crestor 20 mg take one by mouth at night He was also instructed to resume any home medications, including Ventolin. Additionally, the patient will receive a referral for outpatient physical therapy, which he should pursue for at least 2 weeks, 3-5 times per week. Patient is to return to the ED if symptoms recur or are worsening. This was explained to the patient who understands and agrees. Referrals: Lucien Jain MD [Staff Provider] - Damián Malagon MD [Staff Provider] - Nino Thornton MD [Staff Provider] - Aashish Donovan MD [Staff Provider] -
[2018-05-27 13:03] LABS: STREP PNEUMONIAE NEGATIVE (NEGATIVE); STREPTOCOCCUS B NEGATIVE (NEGATIVE)
[2018-05-27 13:04] LABS: N MENINGITIS ACY/W135 NEGATIVE (NEGATIVE); N MENINGITIS B/ECOLI K1 NEGATIVE (NEGATIVE)
--- NOTE | 2018-05-27 15:18 | CP.PCM.PN ---
Subjective - Date & Time of Evaluation Date of Evaluation: 05/27/18 Time of Evaluation: 08:20 - Subjective Subjective: Patient seen and examined Sitting comfortably in no acute distress Denies cough, denies fever or chills, denies chest pain MRI of the head noted Patient on Plavix Objective - Vital Signs/Intake and Output Vital Signs (last 24 hours): Temp Pulse Resp BP Pulse Ox 97.8 F 82 20 112/63 95 05/27/18 07:20 05/27/18 11:44 05/27/18 07:20 05/27/18 07:20 05/27/18 07:20 Intake and Output: 05/27/18 05/27/18 06:59 18:59 Intake Total 1850 Balance 1850 - Medications Medications: Current Medications Albuterol/Ipratropium (Duoneb 3 Mg/0.5 Mg (3 Ml) Ud) 3 ml INH RQ6 [facility] Last Admin: 05/27/18 13:16 Dose: 3 ml Aspirin (Aspirin Chewable) 81 mg PO DAILY [facility] Last Admin: 05/26/18 10:42 Dose: 81 mg Clopidogrel Bisulfate (Plavix) 75 mg PO DAILY [facility] Last Admin: 05/26/18 10:42 Dose: 75 mg Famotidine (Pepcid) 20 mg PO DAILY [facility] Last Admin: 05/27/18 11:03 Dose: 20 mg Folic Acid (Folic Acid) 1 mg PO DAILY [facility] Last Admin: 05/27/18 11:04 Dose: 1 mg Sodium Chloride (Sodium Chloride 0.9%) 1,000 mls @ 100 mls/hr IV .Q10H [facility] Last Admin: 05/27/18 11:11 Dose: 100 mls/hr Ceftriaxone Sodium 1 gm/ (Sodium Chloride) 100 mls @ 100 mls/hr IVPB Q12H [facility] PRN Reason: Protocol Last Admin: 05/27/18 08:00 Dose: 100 mls/hr Azithromycin 500 mg/ Sodium (Chloride) 250 mls @ 250 mls/hr IVPB DAILY [facility] PRN Reason: Protocol Last Admin: 05/27/18 11:03 Dose: 250 mls/hr Multivitamins (Hexavitamin) 1 tab PO DAILY [facility] Nystatin (Nystatin Oral Susp) 5 ml PO QID [facility] Last Admin: 05/27/18 14:26 Dose: 5 ml Rosuvastatin Calcium (Crestor) 20 mg PO HS [facility] Last Admin: 05/26/18 21:28 Dose: 20 mg Thiamine HCl (Vitamin B1 Tab) 100 mg PO DAILY [facility] Last Admin: 05/27/18 11:04 Dose: 100 mg - Labs Labs: 05/27/18 07:22 05/27/18 07:22 PT 13.1 SECONDS (9.7-12.2) H 05/25/18 08:16 INR 1.2 05/25/18 08:16 APTT 29 SECONDS (21-34) 05/25/18 08:16 - Head Exam Head Exam: ATRAUMATIC, NORMOCEPHALIC - ENT Exam ENT Exam: Mucous Membranes Moist - Neck Exam Neck Exam: Normal Inspection - Respiratory Exam Respiratory Exam: Decreased Breath Sounds - Cardiovascular Exam Cardiovascular Exam: REGULAR RHYTHM - GI/Abdominal Exam GI & Abdominal Exam: Soft, Normal Bowel Sounds Assessment and Plan (1) Pleural effusion Assessment & Plan: Thoracenteses as outpatient, patient on Plavix and wants to get the procedure done after few days Patient will be discharged home Follow up in the office Ventolin as needed Patient advised to stop smoking Status: Acute
[2018-05-27 16:56] VITALS: BP 110/72; TEMP 98.3
[2018-05-27 17:26] VITALS: PULSE 78
[2018-05-28] MEDS ORDERED: Multiple Vitamins Tab PO SCH (10:00)
== END 2018-05-27 17:55 | disposition home or self-care (01) | DRG 64 ==
LOC: C.ER 07:43 → C.9E 09:13 → C.6T 09:40
PROVIDERS: ADMIT Internal Medicine; ATTEND Internal Medicine
DX: I63.9 Cerebral infarction, unspecified (principal); J18.9 Pneumonia, unspecified organism; B37.0 Candidal stomatitis; J90 Pleural effusion, not elsewhere classified; D68.59 Other primary thrombophilia; C34.90 Malignant neoplasm of unspecified part of unspecified bronchus or lung; C79.51 Secondary malignant neoplasm of bone; F17.210 Nicotine dependence, cigarettes, uncomplicated; I10 Essential (primary) hypertension; E78.5 Hyperlipidemia, unspecified; R73.02 Impaired glucose tolerance (oral); T50.995A Adverse effect of other drugs, medicaments and biological substances, initial encounter